=== PATIENT | female | born 1955 | race Caucasian/White ===

== ENCOUNTER 2016-08-02 08:39 | Inpatient (IN) | payer MEDICAID, MEDICARE ==
[2016-08-02] VITALS (9 sets, daily range): BP systolic 110–132; BP diastolic 48–77; PULSE 78–99; RESP 16–30; O2SAT 92–96
[~2016-08-02] VITALS: Ht 160 cm; Wt 110.7 kg
[2016-08-02] MEDS ORDERED: 0.9% Sodium Chloride 1,000 ML IV ONE (09:16)
[2016-08-02] MEDS ORDERED: Albuterol-Ipratropium 3 mL Inhalation Solution NEB ONE (09:20)
[2016-08-02] MEDS ORDERED: Magnesium Sulf 2 Gm/50mL Water 2 GM in IV Premix 1 EACH IV ONE (09:20)
[2016-08-02] MEDS ORDERED: cefTRIAXone Inj 2,000 MG in Dextrose 5% Minibag Plus 50 ML IV ONE (09:20)
[2016-08-02] MEDS ORDERED: MethylprednisoLONE Sodium Succinate 62.5 mg/mL 2 mL Inj IVPUSH ONE (09:20)
--- NOTE | 2016-08-02 09:35 | DRSVH ---
PROCEDURE: X-RAY CHEST ONE VIEW, PORTABLE ([id number]) INDICATIONS: cough TECHNIQUE: One view of the chest was acquired. COMPARISON: None. FINDINGS: Surgical changes and devices: None. Lungs and pleura: No pleural effusions or pneumothorax. Lungs are clear. Mediastinum: Mediastinal contours appear normal. Heart size is normal. Bones and chest wall: No suspicious bony lesions. Overlying soft tissues appear unremarkable. IMPRESSION: Negative chest. No acute cardiopulmonary process is evident. Dictated by: Juan Santana M.D. on 08/02/2016 at 8:31 Approved by: Juan Santana M.D. on 08/02/2016 at 8:33
--- NOTE | 2016-08-02 09:48 | ED.REPORT ---
HPI-Dyspnea / Wheezing Date of Service August 02, 2016 ED Provider: Moriah Dorado MD Benita Do is an 61-year-old female with history of chronic bronchitis, on ProAir as needed, bipolar disorder, on Lamictal, anxiety, on Clonazepam, and insonia, on Trazodone, who comes in to [facility] complaining of worsening cough and dyspnea on the last 3 weeks. She was seen at the urgent care about 3 weeks ago with upper respiratory symptoms and was given azithromycin to take. Saturday, 4 days ago, her shortness of breath and cough became worse and she returned to urgent care where she was given additional course of an antibiotic, steroids and ProAir HFA. Today patient reports she is not getting better. She continues to be tachypneic. She has productive cough with thick green mucus. She has decreased appetite for solid foods but she is able to take in liquids. She denies fever or chills. She denies chest pain pain, nausea, vomiting, diarrhea. Patient reports thoracic back pain when coughing. She states she has to use her inhaler more often on a daily basis. Nursing Notes Stated Complaint: SHORTNESS OF BREATH Chief Complaint: Respiratory Complaints Allergies: Coded Allergies: codeine (Verified Allergy, Intermediate, stomach pain, 08/02/16) lisinopril (Verified Allergy, Intermediate, rash, 08/02/16) Penicillins (Verified Adverse Reaction, Mild, nausea, hives, 08/02/16) Scheduled Azithromycin (Zithromax (Z-Luis Alberto)) 250 Mg Tablet 250 MG PO DAILY Lamotrigine (Lamotrigine) 200 Mg Tablet 200 MG PO HS Multivitamin (Once Daily) 1 Each Tablet 1 EACH PO DAILY Prednisone (PredniSONE) 50 Mg Tablet 50 MG PO DAILY Trazodone (Trazodone) 50 Mg Tablet 100 MG PO HS Scheduled PRN Albuterol HFA (Proair HFA) 8.5 Gm Hfa.aer.ad 1-2 PUFFS INH Q4H PRN PRN For Shortness of Breath Clonazepam (Clonazepam) 1 Mg Tablet 1 MG PO TID PRN PRN For Anxiety General Time Seen by MD: 09:07 Chief Complaint Cough, Shortness of breath, Wheezing Hx Obtained From: Patient Arrived By: Walk-in Onset Occurred: More than a week ago... (3 weeks) Severity: Current: No pain currently Risk Factors PERC Rule Age 50 or over Past Medical History Patient History: Stroke Chronic bronchitis Bipolar disorder Anxiety Insomnia Past Surgical History Thyroidectomy Reports: Hysterectomy Reports: Tubal ligation Smoking History Former Smoker (40 pack-year history) Social History Alcohol Use: Denies alcohol use Drug Use: Denies drug use Other Social History: Lives alone Ambulatory Status Independent Review of Systems A comprehensive review of systems has been conducted with the patient and was found to be negative except what is mentioned in the history of present illness. Physical Exam Initial Vital Signs Vital Signs (First) Date Time Temp Pulse Resp B/P Pulse Ox O2 Delivery O2 Flow Rate FiO2 08/02/16 08:45 36.3 86 30 110/63 96 Room Air Initial VS: Reviewed Head / Eyes: Atraumatic, Normocephalic, PERRL ENT: Mucous membranes moist, Conjunctiva normal, No scleral icterus Abdomen / GI: Soft, Non-tender, No distention Back: No CVA tenderness Lymphatic: No lymphadenopathy Extremities: Vascular intact, Neuro intact, No swelling, No tenderness Skin: Warm, Dry, No cyanosis (well-perfused) Neurologic: Alert, Oriented, Nonfocal Psychiatric: Mood/affect normal, Behavior normal General/Constitutional: Awake, Alert, Well nourished Distress / Hydration: Positive: Distress mild Resp Distress / Stridor: Positive: Resp distress mild, Speaks words only Wheezing / Retractions: Positive: Wheeze insp/exp diffuse (bilaterally throughout anterior and posterior lung hutchinson) Cardiovascular: Regular rhythm, No murmurs Periph CV / BP Differential: Positive: Peripheral pulses 2+ Lower Extremity / Pelvis / MS: No swelling Interpretation & Diagnostics Interpretation & Diagnostics: + mycoplasma Lab Results Interpretation Result Diagram: 08/02/16 0930 08/02/16 0930 Test 08/02/16 09:30 White Blood Count 11.2th/mm3 (3.8-10.1) Red Blood Count 4.35mil/mm3 (3.90-5.20) Hemoglobin 12.6g/dL (12.0-15.6) Hematocrit 40.0% (35.0-46.0) Mean Corpuscular Volume 92.0fL (81-100) Mean Corpuscular Hemoglobin 29.0pg (27.0-35.0) Mean Corpuscular Hemoglobin Concent 31.5% (32.0-37.0) Red Cell Distribution Width 14.3% (12.3-15.4) Platelet Count 270bil/L (150-400) Neutrophils (%) (Auto) 69.1% (40-74) Lymphocytes (%) (Auto) 20.9% (14-46) Monocytes (%) (Auto) 8.1% (4-12) Eosinophils (%) (Auto) 1.3% (0-5) Basophils (%) (Auto) 0.4% (0-3) D-Dimer 0.56mg/L FEU (<0.50) Sodium Level 142mEq/L (134-144) Potassium Level 4.2mEq/L (3.5-5.2) Chloride Level 102mEq/L (97-108) Carbon Dioxide Level 26mmol/L (18-29) Blood Urea Nitrogen 19mg/dL (8-27) Creatinine 0.80mg/dL (0.57-1.00) Estimat Glomerular Filtration Rate 104mL/min (>59) Glucose Level 100mg/dL (60-99) Lactic Acid Level 1.9mmol/L (0.4-2.0) Calcium Level 8.8mg/dL (8.5-10.1) Magnesium Level 1.8mg/dL (1.6-2.6) Total Bilirubin 0.2mg/dL (0.0-1.2) Aspartate Amino Transf (AST/SGOT) 29U/L (0-50) Alanine Aminotransferase (ALT/SGPT) 17U/L (0-32) Alkaline Phosphatase 77U/L (25-165) Troponin T 0.010ug/L (0.0-0.011) Pro-B-Type Natriuretic Peptide 283.5pg/mL (0-287) Total Protein 6.9g/dL (6.4-8.4) Albumin 3.7g/dL (3.4-5.0) Procalcitonin 0.05ng/mL (0.00-0.08) ECG Interpretation ECG Interpretation: Sinuses and, heart rate 87 X-Ray Chest Interpretation Chest Xray Interpretation: No acute cardiopulmonary process is evident. Interpretation / Wet Read by: Interpret - Radiologist ( Juan Santana M.D. on 08/02/2016 at 8:31) CT Chest Interpretation IMPRESSION: 1. No evidence of pulmonary emboli. 2. Bibasilar pneumonia with associated bronchitis. 3. Small hiatal hernia. Paraesophageal varices versus small lymph nodes. Dictated by: Juan Santana M.D. on 08/02/2016 at 11:11 Re-Eval/Medical Decision Med Decision/Clinical Course Patient is a 61-year-old female with history of chronic bronchitis on ProAir as needed and COPD, not on home oxygen, who comes in after failed antibiotic therapy for respiratory infection. Patient presents with worsening dyspnea, respiration rate of 30 and cough with thick green mucus. She is afebrile. Concern is for pulmonary emboli due to increase in d-dimer; CT angiogram is pending. COPD exacerbation can not be excluded. Community acquired pneumonia ( no acute cardiopulmonary process on chest x-ray, however), bronchitis,viral respiratory infection are also on hour differential list. We will start patient on Ceftriaxone, 2gm IV and normal saline IV fluids. Will treat patient with Solu-Medrol, 125mg IV once, Magnesium Sulfate, 2gm IV once and DuoNeb treatment. We will check viral respiratory PCR, get blood cultures, check procalcitonin, lactic acid and D-dimer. Re-Evaluation/Progress : Time of Eval: 10:46 Re-Evaluation/Progress Note: Dr Dorado: concern on tele for runs of V Tach. Had pt cough and strip reproduced - artifact. Still quite tachypnic after nebs, fluids, steorid and mag with RR 25-35 and accessory muscles for breathing. Wheeze has improved. sats remain in upper 90's on RA with subjective dyspnea. Distant x-rays with scattered interstitial bilateral findings suggestive of an atypical pneumonia. White count is slightly elevated however pro calcitonin is entirely normal. D-dimer is borderline elevated. Clinical picture is not looking like an obvious external pneumonia. With severe tachypnea still, we will order a CT angios make sure there is no pulmonary embolism. At this point admission is expected. Differential Diagnosis: Positive: Bronchitis, COPD exacerbation, Pneumonia, Pulmonary embolism Comorbidities: Bronchitis, COPD, Disability, Psychiatric history Discharge & Departure Impression: Primary Impression: Mycoplasmal pneumonia Additional Impressions: Tachypnea Respiratory distress Acute exacerbation of chronic obstructive pulmonary disease (COPD) Disposition: ADMITTED TO HOSPITAL Referrals: Yocasta Reyes MD (PCP) Attending Statement Patient seen and examined with Dr. Peña. Significant tachypnea increased work of breathing mild tachycardia normal oxygenation on room air. Low pro- calcitonin minimally elevated white blood cell count no evidence of congestive heart failure. CT scan shows no evidence of pulmonary embolism however she does have a bibasilar pneumonia agreed with plans for admission Jo Peña DO August 02, 2016 09:48 Moriah Dorado MD August 02, 2016 10:49
[2016-08-02 09:49] LABS: BASOPHILS % (AUTO) 0.4 % (0-3); EOSINOPHILS % (AUTO) 1.3 % (0-5); MONOCYTES % (AUTO) 8.1 % (4-12); NEUTROPHILS % (AUTO) 69.1 % (40-74); Platelet Count 270 bil/L (150-400)
[2016-08-02 10:14] LABS: TROPONIN T 0.01 ug/L (0.0-0.011)
--- NOTE | 2016-08-02 12:19 | DRSVH ---
PROCEDURE: CT ANGIO CHEST PULMONARY EMBOLISM ([id number]) INDICATIONS: tachypnea TECHNIQUE: After the administration of intravenous contrast, 2 mm thick sections acquired from the pulmonary api missy to the posterior costophrenic angles. 3-dimensional maximum intensity projection (MIP) coronal a nd sagittal reformats were then acquired through the thorax. For radiation dose reduction, the follo wing was used: automated exposure control, adjustment of mA and/or kV according to patient size. COMPARISON: None. FINDINGS: Image quality: A large portion of the lung bases was not included on the initial pulmonary arterial p hased images which does limit evaluation for very subtle pulmonary emboli in the lung bases. Pulmonary arteries: Pulmonary arteries are normal in size, and demonstrate no intraluminal filling d efects to suggest central pulmonary embolism. Lungs and pleura: No pleural effusion, pneumothorax, or overt heart failure is identified. There are areas of moderate bronchial wall thickening identified, predominantly seen within the bilateral lowe r lobes and perihilar regions (right greater than left). Corresponding airspace disease with tree an d bud nodularity is appreciated within the right lower lobe. Additional more subtle areas of tree in bud nodularity are seen within the right upper lobe and possibly within the left lower lobe. No bolivar g masses evident. Evaluation for pulmonary nodules is difficult on this exam. No definite pulmonary nodule is appreciated. Mediastinum: Heart size is normal, without pericardial effusion. No mediastinal or hilar adenopathy . Thoracic aorta is normal in caliber and enhancement. There is aortic atherosclerosis. Coronary a rtery atherosclerosis also is present. There is a small hiatal hernia. Multiple collateral vessels are seen adjacent to the distal esophagus. Bones and chest wall: No suspicious bony lesions. Ribs and thoracic spine appear intact throughout. Age-appropriate degenerative changes of the spine are present. No acute compression fractures are evident. Thyroid gland is not enlarged. No axillary or supraclavicular adenopathy. Abdomen: The imaged upper abdominal solid organs appear normal in the early arterial phase of enhance ment. IMPRESSION: 1. No evidence of pulmonary emboli. 2. Bibasilar pneumonia with associated bronchitis. 3. Small hiatal hernia. Paraesophageal varices versus small lymph nodes. Dictated by: Juan Santana M.D. on 08/02/2016 at 11:11 Approved by: Juan Santana M.D. on 08/02/2016 at 11:17
[2016-08-02] MEDS ORDERED: Alum-Mag Hydrox-Simeth 30 mL Suspension PO PRN (13:30)
[2016-08-02] MEDS ORDERED: Polyethylene Glycol (PEG) 17 Gm Powder PO PRN (13:30)
[2016-08-02] MEDS ORDERED: Albuterol-Ipratropium 3 mL Inhalation Solution NEB PRN (13:30)
--- NOTE | 2016-08-02 13:40 | PCM.HPMED ---
Subjective Date of Service August 02, 2016 Primary Provider: Admitting Physician: Primary Care Physician: Yocasta Reyes MD Attending Physician: Admit Status: From the Emergency Department Chief Complaint: Persistent shortness of breath History of Present Illness: Patient is a 61-year-old female past medical history significant for COPD/ chronic bronchitis in addition to bipolar disorder presented to [facility] emergency department complaining of worsening cough and shortness of breath which is persistent for the last 3 weeks. Patient noted a more acute worsening over the weekend and on Saturday presented to urgent care at which time she was prescribed course of steroids, when necessary nebulizer pro-air, additional course of antibiotics (Z-Luis Alberto) and discharged home. She had been following therapy as prescribed however note shortness of breath did not improve, perhaps worsened. Additionally noted decreased appetite lower energy level and a cough which is productive of thick green mucus. She does however deny any fever chills or sweats either during our examination are previously. Cough appears very severe and now produces back pain at times. Denies any chest pains or palpitations. She does receive a small amount released from inhaler therapy but this is only transient. Thalami evaluation patient is lying in hospital bed and transported from ER, notes significant improvement for medications provided in the emergency department including magnesium sulfate and Solu- Medrol in conjunction with DuoNeb therapy. Nonetheless she is still complaining of persistent shortness of breath, thankful to be in the care of the hospitalist service. Review of Systems: 10 point review of systems was conducted and entirely negative excepting pertinent positives and negatives included in above history of present illness Allergies Coded Allergies: codeine (Verified Allergy, Intermediate, stomach pain, 08/02/16) lisinopril (Verified Allergy, Intermediate, rash, 08/02/16) Penicillins (Verified Adverse Reaction, Mild, nausea, hives, 08/02/16) Home Medications Lamictal Klonopin Trazodone as needed for sleep Pro-air when necessary Azithromycin, day 3 of 5 Prednisone 50 mg daily. PMH Stroke Chronic bronchitis Bipolar disorder Anxiety Insomnia Surgical History Thyroidectomy Hysterectomy Tubal ligation Family History Patient notes her father suffered from heart disease, and aware of any diseases on her mother's side Social History Hx Alcohol Use: No Hx Substance Use: No Smoking Status: Former Smoker (40 pack-year history/ quit 1 week prior) Exam Vital Signs Vital Sign - Last Date Time Temp Pulse Resp B/P Pulse Ox O2 Delivery O2 Flow Rate FiO2 08/02/16 13:12 36.8 78 18 131/68 95 Room Air General: Alert, Oriented X3, Cooperative, Mild Distress Eyes: PERRLA, EOMI Mouth: Mucous Membr Moist/[place] Neck: Supple Chest & Lungs: Other (coarse breath sounds with diffuse expiratory wheezes noted and normal lung hutchinson. No expiratory wheezes noted. No consolidation or dullness to percussion. ) Cardiovascular: Regular Rate/Rhythm Abdomen: Non-tender, Non-distended, Other (obese) Extremities: No cyanosis/clubbing/edma bilat Neurological: Grossly Neurologically Intact Lab and Diagnostics Result Diagram: 08/02/1692908/02/16929 Assessment & Plan 61-year-old female past medical history of chronic bronchitis presented to emergency department for refractory shortness of breath with respiratory distress following failed outpatient therapy prescribed by urgent care facility approximately 5 days prior. ER evaluation identified mycoplasma pneumonia in addition to clinical findings supportive of COPD and acute exacerbation. Patient readmitted to the hospital for further evaluation and care 1. Acute respiratory failure, hypercapnic - It is likely patient's acute infection in conjunction with underlying lung disease has combined to create her current respiratory compromise - Continue to provide supplemental oxygen as needed - Standing due to nebs every 6 hours In addition to when necessary nebulizer therapies as needed for persistent shortness of breath - See problems below for specific treatments for individual conditions. 2. COPD/bronchitis - Due to nebs to be provided every 2 hours as needed for shortness of breath wheezing - Following Solu-Medrol and accident ER we will increase prednisone to 60 mg by mouth daily - Supplemental oxygen to the provided as needed, for goal of between 88 and 92% saturation 3. Mycoplasma pneumonia - Continue ceftriaxone as prescribed in emergency department in addition to azithromycin - Continue intravenous fluids at 100 mL per hour overnight - Respiratory support as detailed above. 4. Mood disorder - We will continue patient's home medications for anxiety and insomnia. Patient's respiratory function is decompensated to the point where she will likely need greater than 2 midnights for adequate recovery to allow for home discharge. Anticipate patient to be discharged home with regular respiratory rate found in for supplemental oxygen when medically stable. Pain Evaluation: Adequate Pain Control GI Prophylaxis: Not indicated VTE Mechanical Devices: Intermittant Pneumatic CD Resuscitation Status: CPR: Attempt Resuscitation Time spent 55 minutes Imtiaz Spence DO August 02, 2016 13:40
[2016-08-02] MEDS ORDERED: PRED50TA PO (13:55)
[2016-08-02] MEDS ORDERED: KLO1T PO (13:55)
[2016-08-02] MEDS ORDERED: TRAZ-115 PO (13:55)
[2016-08-02] MEDS ORDERED: AZIT250T4 PO (13:55)
[2016-08-02] MEDS ORDERED: LAMO200T2 PO (13:55)
[2016-08-02] MEDS ORDERED: MULT-666 PO (13:55)
[2016-08-02] MEDS ORDERED: ALBU8.5H2 INH (13:55)
--- NOTE | 2016-08-02 14:42 | NUR ---
Admit nurse note Admission assessment completed in the ER. Pt. c/o mild chest aching "from coughing so much". Sisters are at the bedside. Pt. verifies medication list and states she started prednisone and z-pack on Saturday but missed her doses for today. Pt. states she came for sob after not improving after doctor's appointment. She gives history of complete thyroidectomy, but is not on any thyroid replacement. PT. instructed to follow up with PCP. Pt. given information on advance directives per request. Sleep apnea protocol to be initiated upon arrival to unit. Quit kit given per request as pt. states she quit smoking on Saturday. PT. reports last using Meth in March with intent never to use it again. She also gives a history of frequent falls related to "tripping on things." fall signs up and pt oriented to room, call mayes and fall precautions. Pt. assisted to br and nonslip socks provided. She is steady on her feet during assessment. Report given to Melissa Day.
[2016-08-02] MEDS: 0.9% Sodium Chloride 1,000 ML IV SCH (16:27)
[2016-08-02] MEDS: Albuterol-Ipratropium 3 mL Inhalation Solution NEB SCH (18:17)
--- NOTE | 2016-08-02 19:06 | NUR ---
Admission Admit to room 3003 from ER with admission RN and visitors at bedside. IVF started. SKOOG MACHINE OPERATOR placed. Making needs known using call light.
[2016-08-02] MEDS: lamoTRIgine 100 mg Tablet PO SCH (20:08)
[2016-08-03] VITALS (8 sets, daily range): BP systolic 128–168; BP diastolic 70–78; PULSE 83–102; RESP 16–26; O2SAT 90–95
[2016-08-03] MEDS: 0.9% Sodium Chloride 1,000 ML IV SCH ×3 (01:56→14:08)
[2016-08-03] MEDS: Albuterol-Ipratropium 3 mL Inhalation Solution NEB SCH ×4 (03:50→20:30)
[2016-08-03 06:24] LABS: BASOPHILS % (AUTO) 0.2 % (0-3); EOSINOPHILS % (AUTO) 0.1 % (0-5); MONOCYTES % (AUTO) 7.9 % (4-12); Mean Corpuscular Hemoglobin 29.2 pg (27.0-35.0); Mean Corpuscular Volume 89.7 fL (81-100); NEUTROPHILS % (AUTO) 71.4 % (40-74); Platelet Count 312 bil/L (150-400)
--- NOTE | 2016-08-03 07:15 | PCM.PNMED ---
Subjective Date of Service August 03, 2016 Subjective Patient reports improved respiratory function but she is still significantly short of breath than her baseline. Even mild activity while in bed makes her winded which is certainly not her usual. sHe also reported Coughing last night which is nonproductive The patient at least is good however, she was enjoying breakfast during our interview. Exam Vital Signs Vital Sign - Last Date Time Temp Pulse Resp B/P Pulse Ox O2 Delivery O2 Flow Rate FiO2 08/03/16 04:37 36.6 102 25 143/74 90 Nasal Cannula 1.00 Intake and Output 08/02/16 08/02/16 08/03/16 Cumulative From/Thru 15:00 23:00 07:00 08/02/16 08:45 - 08/03/16 06:39 Intake Total 1000 ml 275 ml 1684 ml 2959 ml Output Total 250 ml 800 ml 1050 ml Balance 1000 ml 25 ml 884 ml 1909 ml Intake Oral 275 ml 886 ml 1161 ml IV Total 1000 ml 798 ml 1798 ml Output Urine Total 250 ml 800 ml 1050 ml # Bowel Movements 0 1 1 Exam General: Alert, Oriented X3, Cooperative, Mild Distress Eyes: PERRLA, EOMI Mouth: Mucous Membrane Moist/[place] Neck: Supple Chest & Lungs: Coarse breath sounds with diffuse expiratory wheezes noted and normal lung hutchinson. No expiratory wheezes noted. No consolidation or dullness to percussion. ) Cardiovascular: Regular Rate/Rhythm Abdomen: Non-tender, Non-distended, Obese) Extremities: No cyanosis/clubbing/edema bilat Neurological: Grossly Neurologically Intact IVs and Medications Medications Reviewed: Medications were reviewed in detail Lab and Diagnostics Result Diagram: 08/03/16 0532 08/03/16 0532 Assessment & Plan 61-year-old female past medical history of chronic bronchitis presented to emergency department for refractory shortness of breath with respiratory distress following failed outpatient therapy prescribed by urgent care facility approximately 5 days prior. ER evaluation identified mycoplasma pneumonia in addition to clinical findings supportive of COPD and acute exacerbation. Patient readmitted to the hospital for further evaluation and care 1. Acute respiratory failure, hypercapnic - It is likely patient's acute infection in conjunction with underlying lung disease has combined to create her current respiratory compromise - Continue to provide supplemental oxygen as needed - Standing due to nebs every 6 hours In addition to when necessary nebulizer therapies as needed for persistent shortness of breath - Pt remain tachypnic with need for oxygen support - See problems below for specific treatments for individual conditions. 2. COPD/bronchitis - Duo nebs to be provided every 2 hours as needed for shortness of breath wheezing with standing orders Q6h - Following Solu-Medrol and accident ER we will increase prednisone to 60 mg by mouth daily from 50 out patient. - Supplemental oxygen to the provided as needed 3. Mycoplasma pneumonia - Continue ceftriaxone as prescribed in emergency department in addition to azithromycin - Continue intravenous fluids at 100 mL per hour - Respiratory support as detailed above. 4. Mood disorder - We will continue patient's home medications for anxiety and insomnia. Patient's respiratory function is decompensated to the point where she will likely need greater than 2 midnights for adequate recovery to allow for home discharge. Anticipate patient to be discharged home with regular respiratory rate found in for supplemental oxygen when medically stable. Pain Evaluation: Adequate Pain Control GI Prophylaxis: Not indicated VTE Mechanical Devices: Intermittant Pneumatic CD Resuscitation Status: CPR: Attempt Resuscitation Time spent 25 minutes Imtiaz Spence DO August 03, 2016 07:15
[2016-08-03] MEDS: Multivit-Miner-Folic Acid-Iron Tablet PO SCH (08:51)
[2016-08-03] MEDS: predniSONE 20 mg Tablet PO SCH (08:51)
[2016-08-03] MEDS: cefTRIAXone Inj 2,000 MG in Dextrose 5% Minibag Plus 50 ML IV SCH (08:52)
[2016-08-03] MEDS: Azithromycin Inj 500 MG in Dextrose 5% w/Vial Mate 250 ML IV SCH (08:52)
[2016-08-03] MEDS: [UNRECOGNIZED DRUG - OTHER] INHALATION PRN ×3 (11:19→21:25)
[2016-08-03] MEDS: guaiFENesin DM 200-20 mg/10 mL Syrup PO PRN ×2 (12:42→21:24)
--- NOTE | 2016-08-03 15:05 | NUR ---
Social Work: Initial Assessment Data: Pt is a 61 y/o female admitted for bibasilar mycoplasma, pneumonia, COPD exacerbation. Pt's PCP is Dr Reyes, pt's insurance is Medicare. EMR reviewed. Readmit score is 5, high. OYSTER CULTURIST met with pt at bedside, role explained. Pt states she lives alone in a single story home where she uses no DME. Pt states she drives, has no hx of HH or SNF, no LTC or VA benefits, and is not a caregiver. OYSTER CULTURIST explained HH, pt declining at this time, anticipates she will not need this at d/c. HH choice list given, pt states she has no preference if needed. OYSTER CULTURIST will continue to follow. Assessment: Pt who is independent at baseline. Plan: Pt will d/c home via POV when medically stable, pt declining HH at this time. OYSTER CULTURIST will continue to follow for possible home health need. OYSTER CULTURIST will continue to follow. VIR[place] Ritter Addendum: 08/03/16 at 1509 by MILAGRO VERMA Amended: Links added.
--- NOTE | 2016-08-03 15:43 | NUR ---
took over patient care [id number]
--- NOTE | 2016-08-03 19:34 | NUR ---
Respiratory Excessive coughing with neb txs. Provider okay to use personal inhaler and relabeled from pharmacy. Tolerating well.
[2016-08-03] MEDS: lamoTRIgine 100 mg Tablet PO SCH (21:24)
[2016-08-04] MEDS: Albuterol-Ipratropium 3 mL Inhalation Solution NEB SCH ×4 (02:30→20:17)
[2016-08-04] MEDS: 0.9% Sodium Chloride 1,000 ML IV SCH (05:26)
--- NOTE | 2016-08-04 05:37 | NUR ---
Respiratory/GI: pt on 1LO2 while asleep, CPOX in place, sats low 90's. pt states she is having frequent diarrhea, but has not yet this shift. Will continue to monitor.
[2016-08-04] MEDS: [UNRECOGNIZED DRUG - OTHER] INHALATION PRN ×3 (05:41→18:27)
[2016-08-04 06:18] VITALS: BP 131/76; PULSE 83; RESP 24; O2SAT 90
[2016-08-04] MEDS: Multivit-Miner-Folic Acid-Iron Tablet PO SCH (08:23)
[2016-08-04] MEDS: predniSONE 20 mg Tablet PO SCH (08:23)
[2016-08-04] MEDS: cefTRIAXone Inj 2,000 MG in Dextrose 5% Minibag Plus 50 ML IV SCH (08:23)
[2016-08-04] MEDS: guaiFENesin DM 200-20 mg/10 mL Syrup PO PRN (08:34)
[2016-08-04 08:38] VITALS: PULSE 84; RESP 16; O2SAT 94
[2016-08-04] MEDS: Azithromycin Inj 500 MG in Dextrose 5% w/Vial Mate 250 ML IV SCH (09:07)
--- NOTE | 2016-08-04 10:55 | PCM.PNMED ---
Subjective Date of Service August 04, 2016 Exam Vital Signs Vital Sign - Last Date Time Temp Pulse Resp B/P Pulse Ox O2 Delivery O2 Flow Rate FiO2 08/04/16 08:38 84 16 94 Nasal Cannula 1.00 08/04/16 06:18 37.0 131/76 Intake and Output 08/03/16 08/03/16 08/04/16 Cumulative From/Thru 15:00 23:00 07:00 08/02/16 08:45 - 08/04/16 06:18 Intake Total 480 ml 1912 ml 5351 ml Output Total 1700 ml 2750 ml Balance 480 ml 212 ml 2601 ml Intake Oral 550 ml 1711 ml IV Total 480 ml 1362 ml 3640 ml Output Urine Total 1700 ml 2750 ml # Bowel Movements 1 2 Exam General: Alert, Oriented X3, Cooperative, Mild Distress Eyes: PERRLA, EOMI Mouth: Mucous Membrane Moist/[place] Neck: Supple Chest & Lungs: Coarse breath sounds with diffuse expiratory wheezes noted and normal lung hutchinson. No expiratory wheezes noted. No consolidation or dullness to percussion. Cardiovascular: Regular Rate/Rhythm Abdomen: Non-tender, Non-distended, Obese Extremities: No cyanosis/clubbing/edema bilat Neurological: Grossly Neurologically Intact IVs and Medications Medications Reviewed: Medications were reviewed in detail Lab and Diagnostics Result Diagram: 08/03/16 0532 08/03/16 0532 Assessment & Plan 61-year-old female past medical history of chronic bronchitis presented to emergency department for refractory shortness of breath with respiratory distress following failed outpatient therapy prescribed by urgent care facility approximately 5 days prior. ER evaluation identified mycoplasma pneumonia in addition to clinical findings supportive of COPD and acute exacerbation. Patient readmitted to the hospital for further evaluation and care 1. Acute respiratory failure, hypercapnic - It is likely patient's acute infection in conjunction with underlying lung disease has combined to create her current respiratory compromise - Continue to provide supplemental oxygen as needed - Standing due to nebs every 6 hours In addition to when necessary nebulizer therapies as needed for persistent shortness of breath - Pt remain tachypnic with need for oxygen support, describing increased work of breathing - See problems below for specific treatments for individual conditions. - Patient is making slow but consistent progress, condition improving but not resolved. 2. COPD/bronchitis - Duo nebs to be provided every 2 hours as needed for shortness of breath wheezing with standing orders Q6h - Following Solu-Medrol and accident ER we will increase prednisone to 60 mg by mouth daily from 50 out patient. - Supplemental oxygen to the provided as needed, plan to wean as tolerated 3. Mycoplasma pneumonia - Continue ceftriaxone as prescribed in emergency department in addition to azithromycin - Continue intravenous fluids will be discontinued at this time given good by mouth intake. - Respiratory support as detailed above. 4. Mood disorder - We will continue patient's home medications for anxiety and insomnia. Patient's respiratory function is decompensated to the point where she will likely need greater than 2 midnights for adequate recovery to allow for home discharge. Anticipate patient to be discharged home with regular respiratory rate found in for supplemental oxygen when medically stable. Pain Evaluation: Adequate Pain Control GI Prophylaxis: Not indicated VTE Mechanical Devices: Intermittant Pneumatic CD Resuscitation Status: CPR: Attempt Resuscitation Time spent 25 minutes Imtiaz Spence DO August 04, 2016 10:55
--- NOTE | 2016-08-04 11:11 | NUR ---
[facility] signed
[2016-08-04 13:13] VITALS: BP 155/74; PULSE 94; RESP 20; O2SAT 93
--- NOTE | 2016-08-04 13:14 | NUR ---
loose stools pt reports that she has had loose stools for the last few days. She would like some kind of medication for this. paged, waiting on response.
[2016-08-04 20:17] VITALS: PULSE 88; RESP 16; O2SAT 93
[2016-08-04] MEDS: Lactobacillus Rhamnosus 10 Bil Unit Capsule PO SCH (20:20)
[2016-08-04 21:05] VITALS: BP 136/77; PULSE 81; RESP 20; O2SAT 96
[2016-08-04] MEDS: lamoTRIgine 100 mg Tablet PO SCH (22:19)
[2016-08-05] MEDS: [UNRECOGNIZED DRUG - OTHER] INHALATION PRN (02:01)
[2016-08-05] MEDS: Albuterol-Ipratropium 3 mL Inhalation Solution NEB SCH ×2 (02:30→08:29)
[2016-08-05 05:00] VITALS: BP 155/76; PULSE 81; RESP 18; O2SAT 96
--- NOTE | 2016-08-05 06:15 | NUR ---
Noc activity Pt denies chest pain. Reports mild sob. Inhaler administered PRN. Refused to have breathing tx by RT as it exacerbates her cough. Has been on 2LPM NC and trying to wean to RA. Pt reports of having a CPAP at home states that she didn't bring it with her. Pt reports of having a large loose bowel movement and request to have some anti motility agents. Administered Imodium PRN. No further complaints. Intentional hourly rounding was done.
[2016-08-05] MEDS: predniSONE 20 mg Tablet PO SCH (08:09)
[2016-08-05] MEDS: cefTRIAXone Inj 2,000 MG in Dextrose 5% Minibag Plus 50 ML IV SCH (08:09)
[2016-08-05] MEDS: Lactobacillus Rhamnosus 10 Bil Unit Capsule PO SCH (08:09)
[2016-08-05] MEDS: Multivit-Miner-Folic Acid-Iron Tablet PO SCH (08:09)
[2016-08-05 08:35] VITALS: PULSE 87; RESP 16; O2SAT 93
[2016-08-05] MEDS: Azithromycin Inj 500 MG in Dextrose 5% w/Vial Mate 250 ML IV SCH (08:56)
--- NOTE | 2016-08-05 09:16 | NUR ---
nicotine patch pt states that she has been thinking/dreaming about smoking. She would like to have her patch just before being discharged.
--- NOTE | 2016-08-05 10:50 | PCM.DC.MED ---
Discharge Summary Date of Service August 05, 2016 Dates of Hospitalization Date of Hospital Admission August 02, 2016 at 13:35 Date of Discharge: August 05, 2016 Providers: Admitting Physician: Imtiaz Spence DO Primary Care Physician: Federica Gale Attending Physician: Imtiaz Spence DO Brief History Patient is a 61-year-old female past medical history significant for COPD/ chronic bronchitis in addition to bipolar disorder presented to [facility] emergency department complaining of worsening cough and shortness of breath which is persistent for the last 3 weeks. Patient noted a more acute worsening over the weekend and on Saturday presented to urgent care at which time she was prescribed course of steroids, when necessary nebulizer pro-air, additional course of antibiotics (Z-Luis Alberto) and discharged home. She had been following therapy as prescribed however note shortness of breath did not improve, perhaps worsened. Additionally noted decreased appetite lower energy level and a cough which is productive of thick green mucus. She does however deny any fever chills or sweats either during our examination are previously. Cough appears very severe and now produces back pain at times. Denies any chest pains or palpitations. She does receive a small amount released from inhaler therapy but this is only transient. [place]al[place] evaluation patient is lying in hospital bed and transported from ER, notes significant improvement for medications provided in the emergency department including magnesium sulfate and Solu- Medrol in conjunction with DuoNeb therapy. Nonetheless she is still complaining of persistent shortness of breath, thankful to be in the care of the hospitalist service. Hospital Course 1. Acute respiratory failure, hypercapnic - It is likely patient's acute infection in conjunction with underlying lung disease has combined to create her current respiratory compromise - Continue to provide supplemental oxygen as needed - Standing due to nebs every 6 hours In addition to when necessary nebulizer therapies as needed for persistent shortness of breath - Pt remained tachypnic with need for oxygen support, describing increased work of breathing through first 2 days of hospitalization, but this did start to improve by day of discharge. - See problems below for specific treatments for individual conditions. - Pt improved to being stable on room air, imrpomved work of breathing, discharged in stable and improving condition , though not yet resolved. 2. COPD/bronchitis - Duo nebs were provided every 2 hours as needed for shortness of breath wheezing with standing orders Q6h - Following Solu-Medrol and accident ER we will increase prednisone to 60 mg by mouth daily from 50 out patient. - Supplemental oxygen to the provided as needed,weaned and dc'd prior to discharge - Plan to continue Steroid taper for 10 more days following discharge as follows (Prednisone 60mg PO daily for 2 days, then 40mg PO daily X4 days, then 20mg PO daily X4 days, then discontinue). 3. Mycoplasma pneumonia - Continue ceftriaxone as prescribed in emergency department in addition to azithromycin - Continue intravenous fluids will be discontinued at this time given good by mouth intake. - Respiratory support as detailed above. - Pt transitioned to Augmentin for 7 addition days on discharge, given previous treatment failure of Z-luis alberto prior to admission 4. Mood disorder - We will continue patient's home medications for anxiety and insomnia. 5. Tobacco dependence: - Cessation likely benefitted pt's improvement. - Encourage continued cessation and follow up to establish care with PCP for further support. Exam Vital Signs (Last) Date Time Temp Pulse Resp B/P Pulse Ox O2 Delivery O2 Flow Rate FiO2 08/05/16 09:08 Supplement Oxygen 08/05/16 08:35 87 16 93 08/05/16 05:00 36.9 155/76 1.00 Exam General: Alert, Oriented X3, Cooperative, No acute distress. Eyes: PERRLA, EOMI Mouth: Mucous Membrane Moist/[place] Neck: Supple Chest & Lungs: Coarse breath sounds with diffuse expiratory wheezes noted and normal lung hutchinson improved from day prior. No inspiratory wheezes noted. No consolidation or dullness to percussion. Cardiovascular: Regular Rate/Rhythm Abdomen: Non-tender, Non-distended, Obese Extremities: No cyanosis/clubbing/edema bilat Neurological: Grossly Neurologically Intact Test 08/02/16 09:30 08/03/16 05:32 08/04/16 23:59 D-Dimer 0.56mg/L FEU (<0.50) Hemoglobin A1c 6.0% (4.8-5.6) Lactic Acid Level 1.9mmol/L (0.4-2.0) Magnesium Level 1.8mg/dL (1.6-2.6) Total Bilirubin 0.2mg/dL (0.0-1.2) Aspartate Amino Transf (AST/SGOT) 29U/L (0-50) Alanine Aminotransferase (ALT/SGPT) 17U/L (0-32) Alkaline Phosphatase 77U/L (25-165) Troponin T 0.010ug/L (0.0-0.011) Pro-B-Type Natriuretic Peptide 283.5pg/mL (0-287) Total Protein 6.9g/dL (6.4-8.4) Albumin 3.7g/dL (3.4-5.0) White Blood Count 10.7th/mm3 (3.8-10.1) Red Blood Count 4.39mil/mm3 (3.90-5.20) Hemoglobin 12.8g/dL (12.0-15.6) Hematocrit 39.4% (35.0-46.0) Mean Corpuscular Volume 89.7fL (81-100) Mean Corpuscular Hemoglobin 29.2pg (27.0-35.0) Mean Corpuscular Hemoglobin Concent 32.5% (32.0-37.0) Red Cell Distribution Width 14.0% (12.3-15.4) Platelet Count 312bil/L (150-400) Neutrophils (%) (Auto) 71.4% (40-74) Lymphocytes (%) (Auto) 20.0% (14-46) Monocytes (%) (Auto) 7.9% (4-12) Eosinophils (%) (Auto) 0.1% (0-5) Basophils (%) (Auto) 0.2% (0-3) Sodium Level 141mEq/L (134-144) Potassium Level 4.6mEq/L (3.5-5.2) Chloride Level 102mEq/L (97-108) Carbon Dioxide Level 25mmol/L (18-29) Blood Urea Nitrogen 16mg/dL (8-27) Creatinine 0.65mg/dL (0.57-1.00) Estimat Glomerular Filtration Rate 133mL/min (>59) Glucose Level 111mg/dL (60-99) Calcium Level 8.7mg/dL (8.5-10.1) Procalcitonin 0.05ng/mL (0.00-0.08) Thyroid Stimulating Hormone (TSH) 2.540uIU/mL (0.450-4.500) Discharge Medications Discharge Medications Azithromycin (Zithromax (Z-Luis Alberto)) 250 Mg Tablet 250 MG PO DAILY (Reported) Lamotrigine (Lamotrigine) 200 Mg Tablet 200 MG PO HS (Reported) Multivitamin (Once Daily) 1 Each Tablet 1 EACH PO DAILY (Reported) Prednisone (PredniSONE) 50 Mg Tablet 50 MG PO DAILY (Reported) Trazodone (Trazodone) 50 Mg Tablet 100 MG PO HS (Reported) As needed Albuterol HFA (Proair HFA) 8.5 Gm Hfa.aer.ad 1-2 PUFFS INH Q4H PRN PRN For Shortness of Breath (Reported) Clonazepam (Clonazepam) 1 Mg Tablet 1 MG PO TID PRN PRN For Anxiety (Reported) Followup Plan Disposition: Follow up to establish care with [facility] within 1 week of discharge for further evaluation. Discharge Diet: Heart Healthy Discharge Activity: Limited until seen by PCP Follow-up Provider: [facility] Follow-up with PCP in: 1 week Time spent 50 minutes copies to: [facility] Imtiaz Spence DO August 05, 2016 10:50
[2016-08-05] MEDS ORDERED: PRED50TA PO (10:57)
[2016-08-05] MEDS ORDERED: CEFU500T61 PO (10:57)
--- NOTE | 2016-08-05 10:58 | PCM.DIMED ---
Discharge Instructions Date of Service August 05, 2016 Dates of Hospitalization August 02, 2016 at 13:35 Discharge Diagnosis Discharge Diagnosis 1. Mycoplasma pneumonia infection - improved, Complete additional 7 days of antibiotic 2. COPD exacerbation - Complete steroid taper in addition to home medications. Diet Heart Healthy Activity Limited until seen by PCP Patient Instructions Follow-up Provider: [facility] Follow-up with PCP in: 1 week Imtiaz Spence DO August 05, 2016 10:58
--- NOTE | 2016-08-05 12:08 | NUR ---
discharge paperwork reviewed, no questions at this time. pt denies pain/distress. belongings bagged and given to patient, personal inhaler returned with aero-chamber. pt given a ride in hospital W/C by [facility] to private car to return to private residence.
--- NOTE | 2016-08-05 12:20 | NUR ---
SW - Discharge Data: Pt is on day 3 of hospitalization for bibasilar mycoplasma, pneumonia, COPD exacerbation. EMR reviewed. Pt is medically cleared for discharge, is up and independent in room. Pt declines HH. Pt to discharge home via POV. No needs assessed. Assessment: Pt who is independent at baseline Plan: Pt to discharge home via POV. No needs assessed. [place]
== END 2016-08-05 12:00 | disposition home or self-care (01) | DRG 190 ==
LOC: SED 08:39 → MPC 13:35
PROVIDERS: ADMIT Family Medicine; ATTEND Family Medicine
DX: J44.0 Chronic obstructive pulmonary disease with (acute) lower respiratory infection (principal); J15.7 Pneumonia due to Mycoplasma pneumoniae; F31.9 Bipolar disorder, unspecified; F39 Unspecified mood [affective] disorder; J44.1 Chronic obstructive pulmonary disease with (acute) exacerbation; Z88.0 Allergy status to penicillin; Z79.51 Long term (current) use of inhaled steroids

== ENCOUNTER 2016-08-20 18:30 | Inpatient (IN) | payer MEDICARE ==
[~2016-08-20] VITALS: Ht 160 cm; Wt 111.4 kg
[~2016-08-20 18:30] MED LIST: ALBU8.5H2 INH; CEFU500T61 PO; KLO1T PO; LAMO200T2 PO; MULT-666 PO; PRED50TA PO; TRAZ-115 PO
[2016-08-20 18:39] VITALS: BP 149/79; PULSE 103; RESP 20; O2SAT 92
--- NOTE | 2016-08-20 18:56 | ED.REPORT ---
HPI-Dyspnea / Wheezing Date of Service August 20, 2016 ED Provider: Juan Miguel HigginsO. A 61 year old female with a medical history including COPD, chronic bronchitis, anxiety, and bipolar disorder presents to the ED with increasing shortness of breath over the past week, worsening significantly last night. The patient also reports cough. She denies fever or other symptoms. Two weeks ago the patient was discharged from the hospital after a three night stay with mycoplasma pneumonia and COPD exacerbation. She is currently being tested for a C.Diff infection due to experiencing diarrhea "for some time." Nursing Notes Stated Complaint: SOB Chief Complaint: Respiratory Distress Nursing Notes Reviewed: Yes Allergies: Coded Allergies: codeine (Verified Allergy, Intermediate, stomach pain, 08/02/16) lisinopril (Verified Allergy, Intermediate, rash, 08/02/16) Penicillins (Verified Adverse Reaction, Mild, nausea, hives, 08/02/16) Scheduled Lamotrigine (Lamotrigine) 200 Mg Tablet 200 MG PO HS Multivitamin (Once Daily) 1 Each Tablet 1 EACH PO DAILY Prednisone (PredniSONE) 50 Mg Tablet 20 MG PO DAILY Take 3 tabs (60mg) daily X2 days,then take 2 tabs (40mg) daily X4 days, then 1 tab (20mg) daily X4 days,then discontinue Trazodone (Trazodone) 50 Mg Tablet 100 MG PO HS Scheduled PRN Albuterol HFA (Proair HFA) 8.5 Gm Hfa.aer.ad 1-2 PUFFS INH Q4H PRN PRN For Shortness of Breath Clonazepam (Clonazepam) 1 Mg Tablet 1 MG PO TID PRN PRN For Anxiety General Time Seen by MD: 18:56 Chief Complaint Shortness of breath Hx Obtained From: Patient Arrived By: Walk-in Sudden in Onset?: No Onset Occurred: 1 week ago (Worsening last night) Symptom Duration: Since onset Severity: Current: No pain currently Severity: Maximum: No pain Pertinent Negative: Relieved by nothing Context Related History: Reports: Anxiety, COPD, Pneumonia Recent Healthcare: Recent doctor visit, Recent hospitalization Similar Sx Previous: Yes Past Medical History Patient History: Stroke Past Medical History Stroke Chronic bronchitis Bipolar disorder Anxiety Insomnia COPD Mycoplasma pneumonia Past Surgical History Thyroidectomy Reports: Hysterectomy Reports: Tubal ligation Family History Patient notes her father suffered from heart disease, and aware of any diseases on her mother's side Smoking History Former Smoker Social History Alcohol Use: Denies alcohol use Drug Use: Denies drug use Other Social History: Lives alone Ambulatory Status Independent Review of Systems Constitutional: Denies: Fever Respiratory: Reports: Non-productive cough, Shortness of breath Cardiovascular: Denies: Chest pain Complete sys rev & neg: except as marked. GI: Reports: Diarrhea, Denies: Vomiting Physical Exam Physical Exam Notes: Initial Vital Signs Vital Signs (First) Date Time Temp Pulse Resp B/P Pulse Ox O2 Delivery O2 Flow Rate FiO2 08/20/16 18:39 36.7 103 20 149/79 92 Room Air 08/20/16 19:12 2 Initial VS: Reviewed Head / Eyes: Atraumatic, Normocephalic ENT: Conjunctiva normal, No scleral icterus Skin: Warm, Dry, No cyanosis Neurologic: Alert, Oriented, Nonfocal Psychiatric: Mood/affect normal, Behavior normal, Normal thought content General/Constitutional: Awake, Alert Distress / Hydration: Positive: Distress moderate Neck: Supple, Full range of motion Respiratory / Chest: Breath sounds = bilat Resp Distress / Stridor: Positive: Resp distress moderate Wheezing / Retractions: Positive: Prolonged exp phase, Wheezing mild Poor air entry Cardiovascular: Heart rate NL, Regular rhythm, Heart sounds NL Interpretation & Diagnostics INFLUENZA NEGATIVE Lab Results Interpretation Result Diagram: 08/20/16192408/20/161924 Test 08/20/16 19:25 08/20/16 20:23 08/20/16 23:20 White Blood Count 9.3th/mm3 (3.8-10.1) Red Blood Count 4.42mil/mm3 (3.90-5.20) Hemoglobin 12.8g/dL (12.0-15.6) Hematocrit 40.1% (35.0-46.0) Mean Corpuscular Volume 90.7fL (81-100) Mean Corpuscular Hemoglobin 29.0pg (27.0-35.0) Mean Corpuscular Hemoglobin Concent 31.9% (32.0-37.0) Red Cell Distribution Width 14.1% (12.3-15.4) Platelet Count 224bil/L (150-400) Neutrophils (%) (Auto) 72.8% (40-74) Lymphocytes (%) (Auto) 19.6% (14-46) Monocytes (%) (Auto) 5.7% (4-12) Eosinophils (%) (Auto) 1.4% (0-5) Basophils (%) (Auto) 0.3% (0-3) Sodium Level 139mEq/L (134-144) Potassium Level 3.8mEq/L (3.5-5.2) Chloride Level 100mEq/L (97-108) Carbon Dioxide Level 24mmol/L (18-29) Blood Urea Nitrogen 12mg/dL (8-27) Creatinine 0.63mg/dL (0.57-1.00) Estimat Glomerular Filtration Rate 138mL/min (>59) Glucose Level 150mg/dL (60-99) Calcium Level 9.0mg/dL (8.5-10.1) Total Bilirubin 0.2mg/dL (0.0-1.2) Aspartate Amino Transf (AST/SGOT) 20U/L (0-50) Alanine Aminotransferase (ALT/SGPT) 24U/L (0-32) Alkaline Phosphatase 67U/L (25-165) Troponin T < 0.010ug/L (0.0-0.011) Pro-B-Type Natriuretic Peptide 104.3pg/mL (0-287) Total Protein 6.4g/dL (6.4-8.4) Albumin 3.6g/dL (3.4-5.0) Procalcitonin 0.04ng/mL (0.00-0.08) Urine Color Yellow (YELLOW) Urine Appearance Hazy (CLEAR,HAZY) Urine pH 5.0 (5.0-8.0) Urine Specific [place] 1.032 (1.003-1.035) Urine Protein Negativemg/dL (NEG,TRACE) Urine Glucose (UA) Negativemg/dL (NEGATIVE) Urine Ketones Negativemg/dL (NEGATIVE) Urine Occult Blood Negative (NEGATIVE) Urine Nitrite Negative (NEGATIVE) Urine Bilirubin Negative (NEGATIVE) Urine Urobilinogen Normalmg/dL (NORMAL) Urine Leukocyte Esterase Negative (NEGATIVE) Urine RBC 0-2/hpf (0-2) Urine WBC 0-5/hpf (0-5) Urine Epithelial Cells Few/hpf (NONE-MOD) Urine Crystals Oxalic acid crystals (NONE Urine Bacteria None/hpf (NONE-FEW) Urine Hyaline Casts None/lpf (NONE) Urine Granular Casts None seen (NONE SEEN) Urine Waxy Casts None seen (NONE SEEN) Urine Red Blood Cell Casts None seen (NONE SEEN) Urine White Blood Cell Casts None seen (NONE SEEN) Urine Mucus None seen (None Seen) Urine Trichomonas None seen (NONE SEEN) Urine Yeast None (NONE SEEN) Urinalysis Comment None Urine Culture Reflexed Not indicated Lactic Acid Level 6.4mmol/L (0.4-2.0) Thyroid Stimulating Hormone (TSH) 1.930uIU/mL (0.450-4.500) Free Thyroxine 0.86ng/dL (0.82-1.77) ECG Interpretation ECG Interpretation: Sinus tachycardia rate 113 Left axis deviation Anteroseptal infarct, old Q wave in leads V1 through V3 Poor R-wave progression Time: 20:27 Interpreted by: ED physician X-Ray Chest Interpretation Chest Xray Interpretation: IMPRESSION: No acute process. Dictated by: Gely Cooper M.D. on 08/20/2016 at 19:31 View: Portable, 1 view Interpretation / Wet Read by: Interpret - Radiologist Re-Eval/Medical Decision Source of Hx: Old records Re-Evaluation/Progress : Time of Eval: 21:35 )( Re-Eval Resp / Chest: Moderate wheezing Patient Status: Condition improved Re-Evaluation/Progress Note: Patient feels better but is still wheezing. Discussed with patient x-ray and lab results, diagnosis, and plan for admit. Patient agrees with plan for care and all questions were addressed. Consultation : Referral / Consult Name: Diogo Jimenez MD Consulted With: Hospitalist Call Returned at: 21:54 Journeyman Carpenter: Agrees with eval, Agrees with plan, Accepts admit Counseled Regarding: Diagnosis, Lab results, Need for admission Discharge & Departure Impression: Primary Impression: Respiratory distress Additional Impression: Acute exacerbation of chronic obstructive pulmonary disease (COPD) Disposition: ADMITTED TO HOSPITAL Discharge Condition All VS Reviewed: Yes Condition: Improved Referrals: Federica Gale (PCP) Scribk[employer] Attestation Portions of this note were transcribed by Jocelynn Moreira. I, Dr. Ag, personally performed the history, physical exam, and medical decision-making; I reviewed and confirmed the accuracy of the information in the transcribed note. Signed by: Andre Patton, 08/20/2016, 23:30 copies to: Federica Gale Todd P DO August 20, 2016 18:56 JOCELYNN MOREIRA August 20, 2016 19:02
[2016-08-20] MEDS ORDERED: 0.9% Sodium Chloride 1,000 ML IV ONE (18:58)
[2016-08-20] MEDS ORDERED: MethylprednisoLONE Sodium Succinate 62.5 mg/mL 2 mL Inj IVPUSH ONE (19:00)
[2016-08-20] MEDS ORDERED: Albuterol 2.5 mg/3 mL Inhalation Solution NEB ONE ×2 (19:00→19:25)
[2016-08-20] MEDS ORDERED: Albuterol-Ipratropium 3 mL Inhalation Solution NEB ONE (19:00)
[2016-08-20 19:12] VITALS: PULSE 95; RESP 21; O2SAT 96
[2016-08-20 19:33] VITALS: PULSE 101; RESP 24; O2SAT 97
--- NOTE | 2016-08-20 19:33 | DRSVH ---
PROCEDURE: X-RAY CHEST ONE VIEW, PORTABLE ([id number]) INDICATIONS: fever, cough TECHNIQUE: One view of the chest was acquired. COMPARISON: [facility], CT, CT ANGIO CHEST PE, 08/02/2016, 11:36. [facility] , CR, XR CHEST 1VW (PORTABLE), 08/02/2016, 9:02. FINDINGS: Surgical changes and devices: None. Lungs and pleura: No pleural effusions or pneumothorax. Lungs are clear. Mediastinum: Mediastinal contours appear normal. Heart size is normal. Bones and chest wall: No suspicious bony lesions. Overlying soft tissues appear unremarkable. IMPRESSION: No acute process. Dictated by: Gely Cooper M.D. on 08/20/2016 at 19:31 Approved by: Gely Cooper M.D. on 08/20/2016 at 19:32
[2016-08-20 19:43] LABS: BASOPHILS % (AUTO) 0.3 % (0-3); EOSINOPHILS % (AUTO) 1.4 % (0-5); MONOCYTES % (AUTO) 5.7 % (4-12); Mean Corpuscular Volume 90.7 fL (81-100); NEUTROPHILS % (AUTO) 72.8 % (40-74); Platelet Count 224 bil/L (150-400)
[2016-08-20 20:13] LABS: TROPONIN T < 0.010 ug/L (0.0-0.011)
[2016-08-20 21:06] VITALS: BP_SYST 127; BP_SYST 132; BP_DIAS 48; BP_DIAS 81; PULSE 110; RESP 23; O2SAT 92
[2016-08-20 21:08] LABS: APPEARANCE,URINE HAZY (CLEAR,HAZY); COLOR,URINE YELLOW (YELLOW); OCCULT BLOOD,URINE NEGATIVE (NEGATIVE); UROBILINOGEN,URINE NORMAL (NORMAL)
[2016-08-20] MEDS ORDERED: cefTRIAXone Inj 2,000 MG in Dextrose 5% Minibag Plus 50 ML IV ONE (21:50)
[2016-08-20] MEDS ORDERED: Polyethylene Glycol (PEG) 17 Gm Powder PO PRN (22:05)
[2016-08-20] MEDS ORDERED: Alum-Mag Hydrox-Simeth 30 mL Suspension PO PRN (22:05)
[2016-08-20] MEDS ORDERED: Ondansetron 2 mg/mL 2 mL Inj IVPUSH PRN (22:05)
[2016-08-20] MEDS ORDERED: Albuterol 2.5 mg/3 mL Inhalation Solution NEB PRN (23:00)
--- NOTE | 2016-08-20 23:11 | PCM.HPMED ---
Subjective Date of Service August 20, 2016 Primary Provider: Admitting Physician: Primary Care Physician: Federica Gale Attending Physician: Admit Status: From the Emergency Department, Non-Telemetry Chief Complaint: Shortness of breath, respiratory distress History of Present Illness: A 61 year old female with a medical history including COPD, chronic bronchitis, anxiety, and bipolar disorder presents to the ED with increasing shortness of breath over the past one week, worsening significantly last night. The patient also reports of productive cough. She denies fever or other symptoms. Patient was hospitalized from 08/02-08/05 diagnosed with mycoplasma pneumonia and COPD exacerbation, was discharged on antibiotics and a prednisone taper, which patient was compliant with. Patient states for a brief time thereafter, she was doing quite well, although never felt completely back to her baseline. Patient also endorses ongoing diarrhea since last admit. Patient states she has never had spirometry testing, and is scheduled for one next month. In the ED vitals T 36.7, P 103, R 20, BP 149/79, oxygen 92% on RA. Labs significant only for glucose of 150, otherwise unremarkable. Patient admitted for further treatment and management. Review of Systems: Constitutional: Denies: Fever Respiratory: Reports: Non-productive cough, Shortness of breath Cardiovascular: Denies: Chest pain GI: Denies: Diarrhea, Vomiting Complete sys rev & neg: except as marked. A comprehensive review of systems has been conducted with the patient and found to be negative except what is mentioned above or in the HPI. Allergies Coded Allergies: codeine (Verified Allergy, Intermediate, stomach pain, 08/02/16) lisinopril (Verified Allergy, Intermediate, rash, 08/02/16) Penicillins (Verified Adverse Reaction, Mild, nausea, hives, 08/02/16) Home Medications Cefuroxime Axetil (Cefuroxime) 500 Mg Tablet 500 MG PO BID Lamotrigine (Lamotrigine) 200 Mg Tablet 200 MG PO HS Multivitamin (Once Daily) 1 Each Tablet 1 EACH PO DAILY Prednisone (PredniSONE) 50 Mg Tablet 20 MG PO DAILY Take 3 tabs (60mg) daily X2 days,then take 2 tabs (40mg) daily X4 days, then 1 tab (20mg) daily X4 days,then discontinue Trazodone (Trazodone) 50 Mg Tablet 100 MG PO HS Scheduled PRN Albuterol HFA (Proair HFA) 8.5 Gm Hfa.aer.ad 1-2 PUFFS INH Q4H PRN PRN For Shortness of Breath Clonazepam (Clonazepam) 1 Mg Tablet 1 MG PO TID PRN PRN For Anxiety PMH Stroke Chronic bronchitis Bipolar disorder Anxiety Insomnia COPD Mycoplasma pneumonia Surgical History Thyroidectomy Hysterectomy Tubal ligation Family History Patient notes her father suffered from heart disease, unaware of any diseases on her mother's side Social History Hx Alcohol Use: No Hx Substance Use: Yes (meth - last used March 2016, marijuana years ago) Smoking Status: Former Smoker (smoked 40 years, quit 08/02/16 upon last admit) Living Arrangement: Alone Exam Vital Signs Vital Sign - Last Date Time Temp Pulse Resp B/P Pulse Ox O2 Delivery O2 Flow Rate FiO2 08/20/16 21:06 36.5 110 23 132/81 92 Room Air 08/20/16 19:33 2 Exam General: Alert, Oriented X3, Cooperative, No acute distress. Eyes: PERRLA, EOMI, No scleral icterus, Conjunctiva normal, Mouth: Mucous Membrane Moist/[place] Neck: Supple Chest & Lungs: Coarse breath sounds with diffuse expiratory wheezes, with prolonged expiratory phase. Moderate respiratory distress Cardiovascular: Regular Rate/Rhythm, I/ systolic murmur, no gallops or rubs Abdomen: Non-tender, Non-distended, Obese Extremities: No cyanosis/clubbing bilat, trace pitting edema to mid lower legs bilaterally Skin: Warm, Dry, No cyanosis Neurological: no focal deficits Psychiatric: Mood/affect normal, Behavior normal, Normal thought content Lab and Diagnostics Result Diagram: 08/20/16192408/20/161924 X-Rays, CTs and MRIs Chest Xray Interpretation: IMPRESSION: No acute process. Dictated by: Gely Cooper M.D. on 08/20/2016 at 19:31 View: Portable, 1 view Interpretation / Wet Read by: Interpret - Radiologist Assessment & Plan A 61 year old female with a medical history including COPD, chronic bronchitis, anxiety, and bipolar disorder presents to the ED with increasing shortness of breath over the past week, worsening significantly last night. The patient also reports associated symptom of cough. She denies fever or other symptoms. Two weeks ago the patient was discharged from the hospital after a three night stay with mycoplasma pneumonia and COPD exacerbation. She is currently being tested for a C.Diff infection due to experiencing diarrhea "for some time." Acute respiratory failure secondary to COPD exacerbation, present on admission. Acute. - Patient received 2 g of ceftriaxone in ED - Patient afebrile, no leukocytosis, procalcitonin negative, exacerbation most likely due to viral etiology, will hold off on further antibiotics treatment at this time - Continue to provide supplemental oxygen as needed - Duonebs Q4-6 hours - Albuterol Q2 hours PRN - Solu-Medrol 125mg IV given in ED, will continue Q8H, consider titrating down to 60mg IV twice daily if patient shows improvement in am Lactic acidosis. Present on admission Due to tissue hypoxia or due to Albuterol induced lactic acidosis - trending till normal - continue IV fluids Diarrhea, present on admission.Ongoing. - Patient has been on multiple courses of antibiotics - C. difficile PCR pending - IV fluids Fatigue, present on admission. Ongoing. - Patient had total thyroidectomy many years ago and was on replacement therapy for some time thereafter, patient has not been taking any thyroid medications now for within 10 years after moving to an area - TSH pending Chronic conditions: COPD/bronchitis - Duonebs as above - Supplemental oxygen to the provided as needed - Patient is scheduled for outpatient spirometry in 1 month Bipolar disorder - continue home medication lamotrigine Insomina - Continue home medication trazodone Anxiety - Continue home medication clonazepam held, patient states has not been taking Acetaminophen-fever/headache/mild/moderate pain Antiemetics, as needed Bowel regimen, as needed. Patient status: Patient was admitted under inpatient status with expected length of stay greater than two midnights due to severity of presenting symptoms , risk of adverse event, and complexity of treatment plan. Pain Evaluation: Adequate Pain Control GI Prophylaxis: Not indicated VTE Prophylaxis: Sub-Q Enoxaparin Resuscitation Status: CPR: Attempt Resuscitation Attending Statement The patient was seen and examined together with Dr. Burgos on 08/20 and I agree with the history, exam and plan as outlined in the note above. Natasha Burgos DO August 20, 2016 22:11 Diogo Jimenez MD August 21, 2016 01:40
[2016-08-20] MEDS: 0.9% Sodium Chloride 1,000 ML IV SCH (23:36)
[2016-08-20 23:37] VITALS: BP 130/77; PULSE 97; RESP 18; O2SAT 94
[2016-08-21] VITALS (17 sets, daily range): BP systolic 108–143; BP diastolic 42–72; PULSE 88–109; RESP 16–22; O2SAT 91–99
[2016-08-21] MEDS: Sodium Chloride LOK Flush 10 mL Syringe IVFLUSH SCH ×4 (00:30→23:20)
[2016-08-21] MEDS: Albuterol-Ipratropium 3 mL Inhalation Solution NEB SCH ×6 (00:30→20:37)
[2016-08-21] MEDS: lamoTRIgine 100 mg Tablet PO SCH ×2 (01:09→20:43)
[2016-08-21 02:40] LABS: BASOPHILS % (AUTO) 0.2 % (0-3); EOSINOPHILS % (AUTO) 0.1 % (0-5); MONOCYTES % (AUTO) 0.4 % (4-12); Mean Corpuscular Hemoglobin 28.8 pg (27.0-35.0); NEUTROPHILS % (AUTO) 96.2 % (40-74); Platelet Count 237 bil/L (150-400)
[2016-08-21] MEDS ORDERED: 0.9% Sodium Chloride 500 ML IV ONE (03:20)
--- NOTE | 2016-08-21 03:43 | ABG ---
DateTimeAnalyzed 03:39:00 -_ pH ____7.298 - 7.350 7.450 pCO2 ___34.6__ -mmHg 35.0 45.0 pO2 ___76.8__ -mmHg 69.0 116 HCO3- ___16.4__ -mmol/L 22.0 26.0 ABE ___-8.7__ -mmol/L -2.0 2.0 tHb ___12.2__ -g/dL O2Hb ___93.9__ -% COHb ____0.6__ -% MetHb ____0.9__ -% sO2 ___95.3__ -% FIO2 ___21.0__ -% Drawn By MM - Date/Time Notified____ 03:43:00 -_ Spontaneous_RR ___18.0__ -b/min Notified Whom Smitha B. RN - B 758 -mmHg tO2 ___16.1__ -Vol% Ortiz test _Positive -
[2016-08-21] MEDS ORDERED: MethylprednisoLONE Sodium Succinate 62.5 mg/mL 2 mL Inj IVPUSH SCH (04:00)
[2016-08-21] MEDS ORDERED: 0.9% Sodium Chloride 1,000 ML IV ONE (04:50)
[2016-08-21] MEDS ORDERED: guaiFENesin 600 mg ER12 Tablet PO ONE (04:55)
[2016-08-21] MEDS: 0.9% Sodium Chloride 1,000 ML IV SCH ×3 (06:02→21:43)
--- NOTE | 2016-08-21 14:37 | DRSVH ---
PROCEDURE: CT CHEST, ABDOMEN AND PELVIS [facility] CONTRAST ([id number]) INDICATIONS: cough, diarrhea, lactic acidosis TECHNIQUE: After the administration of oral and intravenous contrast, 5 mm thick sections acquired from the lung apices to the symphysis. 5 mm coronal and sagittal reformats were performed, with additional 7 mm c oronal MIP reformats through the lungs. For radiation dose reduction, the following was used: autom ated exposure control, adjustment of mA and/or kV according to patient size. COMPARISON: [facility], CT, CT ANGIO CHEST PE, 08/02/2016, 11:36. FINDINGS: Image quality: Excellent. CHEST: Lungs and pleura: Right lower lobe contusion has resolved. There is left basilar atelectasis. No acu te airspace opacities. No pleural effusions or pneumothorax. Central and peripheral airways appear patent and normal in caliber. Mediastinum: Heart size is normal. No pericardial effusion. No mediastinal or hilar adenopathy by size criteria. Thoracic aorta and central pulmonary arteries are normal in size. Esophagus is soo l in caliber. There is a small hiatal hernia and mild concentric thickening of the distal esophagus. Chest wall: No axillary or supraclavicular adenopathy by size criteria. The left thyroid lobe is abs ent. The right cerebral is normal. ABDOMEN: Solid organs: Mild hepatic steatosis. Liver and spleen are normal in size and enhancement. Gallblad mariaa is normal. Biliary system is non dilated. Pancreas enhances normally. No adrenal nodules. Kid neys demonstrate normal size and enhancement, without hydronephrosis. Peritoneum and bowel: Bowel loops demonstrate normal wall thickness and caliber. There is lipomatos is or a fatty mass in the ileocecal valve. There are scattered colonic diverticula. No evidence for a ctive diverticulitis. No free fluid or air. Nodes and vessels: No retroperitoneal or mesenteric adenopathy by size criteria. Aorta and inferior vena cava are normal in size. Miscellaneous: No ventral hernias. PELVIS: Genitourinary: Bladder wall thickness is normal. Miscellaneous: No inguinal hernias or adenopathy. Bones: No suspicious bony lesions. No vertebral body compression fractures. There is degenerative changes in lumbar spine. There is distal lumbar spine central canal stenosis. IMPRESSION: 1. Lipomatosis versus a fatty mass (lipoma) in the ileocecal valve. 2. Left basilar atelectasis. 3. Small hiatal hernia and concentric thickening of the distal esophagus. If clinically indicated, fu rther evaluation with upper GI series or upper endoscopy is suggested. 4. Hepatic steatosis. 3. Degenerative changes in lumbar spine with distal lumbar spine central canal stenosis. Dictated by: Ashtyn Block M.D. on 08/21/2016 at 14:27 Transcribed by: LARRY on 08/21/2016 at 14:37 Approved by: Ashtyn Block M.D. on 08/22/2016 at 10:46
--- NOTE | 2016-08-21 19:54 | PCM.PNMED ---
Subjective Date of Service August 21, 2016 Subjective A 61 year old female with a medical history including COPD, chronic bronchitis, anxiety, and bipolar disorder presents to the ED with increasing shortness of breath over the past one week, worsening significantly . Today is hospital day 2. This morning, she continues to have some dyspnea, but it has improved since being admitted. She does not have abdominal pain. She has diarrhea and has since she was discharged about 2 weeks ago. She does not have nausea, vomiting, or dysuria. Exam Vital Signs Vital Sign - Last Date Time Temp Pulse Resp B/P Pulse Ox O2 Delivery O2 Flow Rate FiO2 08/21/16 16:31 36.8 107 18 140/61 96 Room Air 08/20/16 23:50 2 Intake and Output 08/20/16 08/20/16 08/21/16 Cumulative From/Thru 15:00 23:00 07:00 08/20/16 18:39 - 08/21/16 04:57 Intake Total 2250 ml 2250 ml Output Total 300 ml 300 ml Balance 1950 ml 1950 ml Intake Oral 250 ml 250 ml IV Total 2000 ml 2000 ml Output Urine Total 300 ml 300 ml # Bowel Movements 0 0 Exam General: Alert, Oriented X3, Cooperative, No acute distress. Eyes: PERRLA, EOMI, No scleral icterus, Conjunctiva normal, Mouth: Mucous Membrane Moist/[place] Neck: Supple Chest & Lungs: Scattered bilateral end-expiratory wheezes, with prolonged expiratory phase. No acute respiratory distress. Normal respiratory effort with no accessory muscles Cardiovascular: Regular Rate/Rhythm, I/ systolic murmur, no gallops or rubs Abdomen: Non-tender, Non-distended, Obese Extremities: No cyanosis/clubbing bilat, trace pitting edema to mid lower legs bilaterally Skin: Warm, Dry, No cyanosis Neurological: no focal deficits Psychiatric: Mood/affect normal, Behavior normal, Normal thought content IVs and Medications Medications Reviewed: Medications were reviewed in detail Lab and Diagnostics Result Diagram: 08/21/16 0230 08/21/16 0230 X-Rays, CTs and MRIs Chest Xray Interpretation: IMPRESSION: No acute process. Dictated by: Gely Cooper M.D. on 08/20/2016 at 19:31 View: Portable, 1 view Interpretation / Wet Read by: Interpret - Radiologist DRAFT PROCEDURE: CT CHEST, ABDOMEN AND PELVIS [facility] CONTRAST ([id number]) IMPRESSION: 1. Lipomatosis versus a fatty mass (lipoma) in the ileocecal valve. 2. Left basilar atelectasis. 3. Small hiatal hernia. Dictated by: Ashtyn Block M.D. on 08/21/2016 at 14:27 Transcribed by: LARRY on 08/21/2016 at 14:37 Assessment & Plan A 61 year old female with a medical history including COPD, chronic bronchitis, anxiety, and bipolar disorder presents to the ED with increasing shortness of breath over the past week, worsening significantly last night. The patient also reports associated symptom of cough. She denies fever or other symptoms. Two weeks ago the patient was discharged from the hospital after a three night stay with mycoplasma pneumonia and COPD exacerbation. She is currently being tested for a C.Diff infection due to experiencing diarrhea "for some time." Acute respiratory failure secondary to COPD exacerbation, present on admission. Improving. - Patient received 2 g of ceftriaxone in ED - Patient afebrile, no leukocytosis, procalcitonin negative, exacerbation most likely due to viral etiology, will hold off on further antibiotics treatment at this time - Left basilar atelectasis on CT scan - Continue to provide supplemental oxygen as needed - Duonebs Q4-6 hours - Albuterol Q2 hours PRN - Solu-Medrol 125mg IV given in ED decreased to 40mg IV twice daily with the plan to transition to PO prednisone 40 mg BID if patient shows improvement in am - Incentive spirometer and acapella Lactic acidosis. Present on admission, Improving Due to tissue hypoxia or due to Albuterol - CT scan did not show any ischemic or acute infectious process as the cause - Level was rising today but now it is decreasing - Continue trending until normal - continue IV normal saline fluids at 150 ml/hr Diarrhea, present on admission.Ongoing. - Patient has been on multiple courses of antibiotics - CT as above - C. difficile PCR negative - Stool PCR pending - IV fluids as above - Started Florastor twice per day Fatigue, present on admission. Ongoing. - Patient had total thyroidectomy many years ago and was on replacement therapy for some time thereafter, patient has not been taking any thyroid medications now for within 10 years after moving to an area - TSH within normal Chronic conditions: COPD/bronchitis - Duonebs as above - Supplemental oxygen to the provided as needed - Patient is scheduled for outpatient spirometry in 1 month Bipolar disorder - continue home medication lamotrigine Insomina - Continue home medication trazodone Anxiety - Home medication clonazepam held, patient states has not been taking Acetaminophen-fever/headache/mild/moderate pain Antiemetics, as needed Bowel regimen, as needed. GI Prophylaxis: Not indicated VTE Prophylaxis: Sub-Q Enoxaparin Resuscitation Status: CPR: Attempt Resuscitation Attending Statement The patient was seen and examined together with Dr. Boyd on 08-21-16 and I agree with the history, exam and plan as outlined in the note above. Reyna Boyd DO August 21, 2016 18:08 Manuel Dash MD Sep 03, 2016 06:57
[2016-08-21] MEDS: MethylprednisoLONE Sodium Succinate 40 mg/mL Inj IVPUSH SCH (20:44)
[2016-08-21] MEDS ORDERED: lamoTRIgine 100 mg Tablet PO SCH (21:00)
[2016-08-22] VITALS (12 sets, daily range): BP systolic 112–153; BP diastolic 64–79; PULSE 85–107; RESP 16–22; O2SAT 92–98
[2016-08-22] MEDS: Albuterol-Ipratropium 3 mL Inhalation Solution NEB SCH ×6 (00:50→20:21)
[2016-08-22] MEDS: 0.9% Sodium Chloride 1,000 ML IV SCH ×4 (02:43→22:25)
[2016-08-22 03:22] LABS: BASOPHILS % (AUTO) 0.1 % (0-3); EOSINOPHILS % (AUTO) 0 % (0-5); MONOCYTES % (AUTO) 2.1 % (4-12); Mean Corpuscular Hemoglobin 29.4 pg (27.0-35.0); Mean Corpuscular Volume 89.5 fL (81-100); NEUTROPHILS % (AUTO) 92.3 % (40-74); Platelet Count 239 bil/L (150-400)
[2016-08-22] MEDS: Sodium Chloride LOK Flush 10 mL Syringe IVFLUSH SCH ×2 (08:30→16:30)
[2016-08-22] MEDS: MethylprednisoLONE Sodium Succinate 40 mg/mL Inj IVPUSH SCH (09:11)
[2016-08-22] MEDS: levoFLOXacin Inj 750 MG in IV Premix 1 EACH IV SCH (15:13)
--- NOTE | 2016-08-22 18:17 | PCM.PNMED ---
Subjective Date of Service August 22, 2016 Subjective A 61 year old female with a medical history including COPD, chronic bronchitis, anxiety, and bipolar disorder presents to the ED with increasing shortness of breath over the past one week, worsening significantly . Today is hospital day 3. This morning, she reports that she continues to have a productive cough with clear sputum. She has dyspnea this morning because she did not want a breathing treatment last night. She continues to have diarrhea but it is slightly more formed today. She does not have abdominal pain or dysuria. Exam Vital Signs Vital Sign - Last Date Time Temp Pulse Resp B/P Pulse Ox O2 Delivery O2 Flow Rate FiO2 08/22/16 15:53 36.7 107 18 144/77 94 Room Air 08/20/16 23:50 2 Intake and Output 08/21/16 08/21/16 08/22/16 Cumulative From/Thru 15:00 23:00 07:00 08/20/16 18:39 - 08/22/16 06:04 Intake Total 3194 ml 1712 ml 7156 ml Output Total 1650 ml 1200 ml 3150 ml Balance 1544 ml 512 ml 4006 ml Intake Oral 700 ml 218 ml 1168 ml IV Total 2494 ml 1494 ml 5988 ml Output Urine Total 1650 ml 1200 ml 3150 ml # Bowel Movements 1 1 Exam General: Alert, Oriented X3, Cooperative, No acute distress. Eyes: PERRLA, EOMI, No scleral icterus, Conjunctiva normal, Mouth: Mucous Membrane Moist/[place] Neck: Supple Chest & Lungs: Diffuse scattered bilateral end-expiratory wheezes, with prolonged expiratory phase. No acute respiratory distress. Normal respiratory effort with no accessory muscles Cardiovascular: Regular Rate/Rhythm, I/ systolic murmur, no gallops or rubs Abdomen: Non-tender, Non-distended, Obese Extremities: No cyanosis/clubbing bilat, trace pitting edema to mid lower legs bilaterally Skin: Warm, Dry, No cyanosis Neurological: no focal deficits Psychiatric: Mood/affect normal, Behavior normal, Normal thought content IVs and Medications Medications Reviewed: Medications were reviewed in detail Lab and Diagnostics Result Diagram: 08/22/16 03108/22/16 031 X-Rays, CTs and MRIs Chest Xray Interpretation: IMPRESSION: No acute process. Dictated by: Gely Cooper M.D. on 08/20/2016 at 19:31 View: Portable, 1 view Interpretation / Wet Read by: Interpret - Radiologist DRAFT PROCEDURE: CT CHEST, ABDOMEN AND PELVIS [facility] CONTRAST ([id number]) IMPRESSION: 1. Lipomatosis versus a fatty mass (lipoma) in the ileocecal valve. 2. Left basilar atelectasis. 3. Small hiatal hernia. Dictated by: Ashtyn Block M.D. on 08/21/2016 at 14:27 Transcribed by: LARRY on 08/21/2016 at 14:37 Assessment & Plan A 61 year old female with a medical history including COPD, chronic bronchitis, anxiety, and bipolar disorder presented to the ED with increasing shortness of breath over the past week Acute hypoxic respiratory failure secondary to COPD exacerbation, present on admission. Improving. - Positive rhinovirus/enterovirus - Patient received 2 g of ceftriaxone in ED - Patient afebrile, no leukocytosis, procalcitonin negative with an exacerbation most likely due to viral etiolog. Originally, antibiotics were held. However, lactic acidosis continues to remain elevated and pt has leukocytosis so antibiotics were initiated. - Left basilar atelectasis on CT scan - Continue to provide supplemental oxygen as needed - Duonebs Q4-6 hours - Albuterol Q2 hours PRN - Solu-Medrol 125mg IV given in ED decreased to 40mg IV twice daily and transitioned to PO prednisone 40 mg BID - Incentive spirometer and acapella - Start levofloxacin 750 mg IV once daily Lactic acidosis. Present on admission, Improving but persistent. Due to tissue hypoxia or due to Albuterol - CT scan did not show any ischemic or acute infectious process as the cause - Level was rising today but now it is decreasing - Continue trending until normal - continue IV normal saline fluids at 250 ml/hr - Levofloxacin as above Diarrhea, present on admission.Ongoing. - Patient has been on multiple courses of antibiotics - CT as above - C. difficile PCR negative - Stool PCR negative - IV fluids as above - Started Florastor twice per day Fatigue, present on admission. Ongoing. - Patient had total thyroidectomy many years ago and was on replacement therapy for some time thereafter, patient has not been taking any thyroid medications now for within 10 years after moving to an area - TSH within normal Chronic conditions: COPD/bronchitis - Duonebs as above - Supplemental oxygen to the provided as needed - Patient is scheduled for outpatient spirometry in 1 month Bipolar disorder - continue home medication lamotrigine Insomina - Continue home medication trazodone Anxiety - Home medication clonazepam held, patient states has not been taking Acetaminophen-fever/headache/mild/moderate pain Antiemetics, as needed Bowel regimen, as needed. GI Prophylaxis: Not indicated VTE Prophylaxis: Sub-Q Enoxaparin Resuscitation Status: CPR: Attempt Resuscitation Attending Statement Patient seen and examined with house staff. Agree with all attached documentation. Reyna oByd DO August 22, 2016 17:28 Ortiz Carolina MD August 23, 2016 16:17
[2016-08-22] MEDS: predniSONE 20 mg Tablet PO SCH (20:33)
[2016-08-22] MEDS: lamoTRIgine 100 mg Tablet PO SCH (20:34)
[2016-08-23] VITALS (18 sets, daily range): BP systolic 128–156; BP diastolic 68–85; PULSE 81–97; RESP 16–32; O2SAT 95–98
[2016-08-23] MEDS: Sodium Chloride LOK Flush 10 mL Syringe IVFLUSH SCH ×4 (00:41→21:10)
[2016-08-23] MEDS: 0.9% Sodium Chloride 1,000 ML IV SCH ×5 (00:41→21:10)
[2016-08-23] MEDS: Albuterol-Ipratropium 3 mL Inhalation Solution NEB SCH ×4 (01:10→12:16)
[2016-08-23 02:15] LABS: BASOPHILS % (AUTO) 0.1 % (0-3); EOSINOPHILS % (AUTO) 0 % (0-5); MONOCYTES % (AUTO) 2.4 % (4-12); Mean Corpuscular Hemoglobin 28.4 pg (27.0-35.0); Mean Corpuscular Volume 87.6 fL (81-100); NEUTROPHILS % (AUTO) 89.3 % (40-74); Platelet Count 237 bil/L (150-400)
[2016-08-23] MEDS: predniSONE 20 mg Tablet PO SCH (10:12)
[2016-08-23] MEDS: levoFLOXacin Inj 750 MG in IV Premix 1 EACH IV SCH (10:12)
--- NOTE | 2016-08-23 13:46 | PCM.PNMED ---
Subjective Date of Service August 23, 2016 Subjective A 61 year old female with a medical history including COPD, chronic bronchitis, anxiety, and bipolar disorder presents to the ED with increasing shortness of breath over the past one week, worsening significantly . Today is hospital day 4. She reports that her breathing has improved but she feels fatigued and not back to normal. She does not have abdominal pain or dysuria. She continues to have diarrhea. She does not have history of hepatitis A, B, or C. She does not drink alcohol. She used a CPAP machine in the past but has not for years. Exam Vital Signs Vital Sign - Last Date Time Temp Pulse Resp B/P Pulse Ox O2 Delivery O2 Flow Rate FiO2 08/23/16 05:17 85 08/23/16 04:53 36.7 20 139/75 98 OxyMask 5.00 Intake and Output 08/22/16 08/22/16 08/23/16 Cumulative From/Thru 15:00 23:00 07:00 08/20/16 18:39 - 08/23/16 05:55 Intake Total 3077 ml 2347 ml 73244 ml Output Total 100 ml 1300 ml 4550 ml Balance 2977 ml 1047 ml 8030 ml Intake Oral 877 ml 400 ml 2445 ml IV Total 2200 ml 1947 ml 60083 ml Output Urine Total 100 ml 1300 ml 4550 ml # Bowel Movements 2 3 Exam General: Alert, Oriented X3, Cooperative, No acute distress. Eyes: PERRLA, EOMI, No scleral icterus, Conjunctiva normal, Mouth: Mucous Membrane Moist/[place] Neck: Supple Chest & Lungs: Clear to auscultation bilaterally with prolonged expiratory phase. No acute respiratory distress. Normal respiratory effort with no accessory muscles Cardiovascular: Regular Rate/Rhythm, I/ systolic murmur, no gallops or rubs Abdomen: Non-tender, Non-distended, Obese Extremities: No cyanosis/clubbing bilat, trace pitting pedal edema bilaterally Skin: Warm, Dry, No cyanosis Neurological: no focal deficits Psychiatric: Mood/affect normal, Behavior normal, Normal thought content IVs and Medications Medications Reviewed: Medications were reviewed in detail Lab and Diagnostics Result Diagram: 08/23/16 0206 08/23/16 0206 X-Rays, CTs and MRIs Chest Xray Interpretation: IMPRESSION: No acute process. Dictated by: Gely Cooper M.D. on 08/20/2016 at 19:31 View: Portable, 1 view Interpretation / Wet Read by: Interpret - Radiologist PROCEDURE: CT CHEST, ABDOMEN AND PELVIS WTIH CONTRAST IMPRESSION: 1. Lipomatosis versus a fatty mass (lipoma) in the ileocecal valve. 2. Left basilar atelectasis. 3. Small hiatal hernia and concentric thickening of the distal esophagus. If clinically indicated, further evaluation with upper GI series or upper endoscopy is suggested. 4. Hepatic steatosis. 3. Degenerative changes in lumbar spine with distal lumbar spine central canal stenosis. Approved by: Ashtyn Block M.D. on 08/22/2016 at 10:46 Assessment & Plan A 61 year old female with a medical history including COPD, chronic bronchitis, anxiety, and bipolar disorder presented to the ED with increasing shortness of breath over the past week Acute respiratory failure secondary to COPD exacerbation, present on admission. Improving. - Positive rhinovirus/enterovirus - Patient received 2 g of ceftriaxone in ED - Patient afebrile, no leukocytosis, procalcitonin negative with an exacerbation most likely due to viral etiology. Originally, antibiotics were held. However, lactic acidosis continues to remain elevated and pt has leukocytosis so antibiotics were initiated. - Left basilar atelectasis on CT scan - Continue to provide supplemental oxygen as needed - Solu-Medrol 125mg IV given in ED, transitioned to PO prednisone 40 mg once daily - Incentive spirometer and acapella - Hold Duonebs Q4-6 hours - Hold Albuterol Q2 hours PRN - Start ipratropium nebulizers every 6 hours - Start levofloxacin 750 mg IV once daily Lactic acidosis. Present on admission, Improving Due to tissue hypoxia or due to Albuterol - CT scan did not show any ischemic or acute infectious process as the cause - Level was rising but now it is decreasing - Continue trending until normal - continue IV normal saline fluids at 200 ml/hr - Hold albuterol nebulizers and use only ipratropium for now - Levofloxacin as above Diarrhea, present on admission.Ongoing. - Patient has been on multiple courses of antibiotics - CT as above - C. difficile PCR negative - Stool PCR negative - IV fluids as above - Started Florastor twice per day Fatigue, present on admission. Ongoing. - Patient had total thyroidectomy many years ago and was on replacement therapy for some time thereafter, patient has not been taking any thyroid medications now for within 10 years after moving to an area - TSH within normal - Patient reports using a CPAP in the past but has not for years - Possibly secondary to LOR[place] Chronic conditions: COPD/bronchitis - Duonebs as above - Supplemental oxygen to the provided as needed - Patient is scheduled for outpatient spirometry in 1 month Bipolar disorder - continue home medication lamotrigine [place] - Continue home medication trazodone Anxiety - Home medication clonazepam held, patient states has not been taking Acetaminophen-fever/headache/mild/moderate pain Antiemetics, as needed Bowel regimen, as needed. Disposition: Likely discharge to home in the next 1-2 days pending improvement of lactic acidosis. GI Prophylaxis: Not indicated VTE Prophylaxis: Sub-Q Enoxaparin Resuscitation Status: CPR: Attempt Resuscitation Attending Statement Patient seen and examined with house staff. Agree with all attached documentation. Reyna Boyd DO August 23, 2016 07:42 Ortiz Carolina MD August 23, 2016 16:29
[2016-08-23] MEDS: Ipratropium 0.02% 0.5 mg/2.5 mL Inhalation Solution NEB SCH ×2 (15:30→20:34)
[2016-08-23] MEDS: lamoTRIgine 100 mg Tablet PO SCH (21:10)
[2016-08-24] VITALS (7 sets, daily range): BP systolic 153–164; BP diastolic 66–92; PULSE 73–91; RESP 16–18; O2SAT 94–96
[2016-08-24] MEDS: 0.9% Sodium Chloride 1,000 ML IV SCH ×3 (00:29→06:10)
[2016-08-24] MEDS: Ipratropium 0.02% 0.5 mg/2.5 mL Inhalation Solution NEB SCH ×2 (02:20→07:45)
[2016-08-24 04:21] LABS: BASOPHILS % (AUTO) 0.2 % (0-3); EOSINOPHILS % (AUTO) 0.8 % (0-5); Mean Corpuscular Hemoglobin 28.7 pg (27.0-35.0); Mean Corpuscular Volume 86.7 fL (81-100); NEUTROPHILS % (AUTO) 63.7 % (40-74); Platelet Count 214 bil/L (150-400)
[2016-08-24] MEDS ORDERED: levoFLOXacin 750 mg Tablet PO SCH (07:30)
[2016-08-24] MEDS: Sodium Chloride LOK Flush 10 mL Syringe IVFLUSH SCH (08:14)
[2016-08-24] MEDS ORDERED: predniSONE 20 mg Tablet PO SCH (08:30)
[2016-08-24] MEDS ORDERED: PRED-508 PO (10:32)
[2016-08-24] MEDS ORDERED: SACC250C PO (10:32)
[2016-08-24] MEDS ORDERED: ALBU8.5H2 INH (10:32)
[2016-08-24] MEDS ORDERED: LEVO750T9 PO (10:32)
[2016-08-24] MEDS ORDERED: ATRINH INH (10:32)
--- NOTE | 2016-08-24 10:40 | PCM.DIMED ---
Reyna Boyd DO 08/24/16 0806: Discharge Instructions Date of Service August 24, 2016 Dates of Hospitalization August 20, 2016 at 23:59 Discharge Diagnosis Discharge Diagnosis You had a COPD flare and an upper respiratory virus infection called rhinovirus/ enterovirus. You also had an elevated lactic acid level. Diet Discharge Diet: No restrictions Activity Discharge Activity: Limited until seen by PCP Call your provider Call your provider for: Fever or Chills, Shortness of breath, Bleeding, Chest pain, Vomitting, Excessive diarrhea, Weakness (unilateral) Patient Instructions Patient Instructions For the COPD flare, continue levofloxacin 750 mg once daily for the next 2 days. Continue a 1 week steroid taper by taking prednisone 20 mg once daily for 7 days. We held albuterol as it likely contributed to the high lactic acid level. Start using an Atrovent inhaler 2 puffs every 6 hours. If you have shortness of breath or wheezing even after using the Atrovent inhaler, then you should use your rescue albuterol inhaler 2 puffs every 4 to 6 hours as needed. For diarrhea, you can continue to take the probiotics (Florastor) twice per day or eat foods with probiotics like yogurt, sauerkraut, or pickled vegetables. Follow up with your primary care provider in 7-10 days. Follow-up Provider: Federica Gale Follow-up with PCP in: 1 week Ortiz Carolina MD 08/25/16 0740: Discharge Instructions Attending's Statement Patient seen and examined with house staff. Agree with all attached documentation. Reyna Boyd DO August 24, 2016 08:06 Ortiz Carolina MD August 25, 2016 07:40
--- NOTE | 2016-08-24 17:45 | PCM.DC.MED ---
Discharge Summary Date of Service August 24, 2016 Dates of Hospitalization Date of Hospital Admission August 20, 2016 at 23:59 Date of Discharge: August 24, 2016 Providers: Admitting Physician: Diogo Jimenez MD Primary Care Physician: Federica Gale Attending Physician: Diogo Jimenez MD Diagnosis at Time of Discharge Diagnosis at Time of Discharge Acute hypoxic respiratory failure secondary to COPD exacerbation secondary to viral URI, present on admission. Improving. Rhinovirus/enterovirus upper respiratory infection, present on admission. Resolved. Lactic acidosis (anion gap metabolic acidosis), Acute. Present on admission, resolved. Diarrhea, acute, present on admission.improving. Fatigue, chronic, present on admission. improving. Bipolar disorder, chronic. Stable. Insomnia, chronic. Stable. Anxiety, chronic. Stable. Procedures XRay, CTs & MRIs Chest Xray Interpretation: IMPRESSION: No acute process. Dictated by: Gely Cooper M.D. on 08/20/2016 at 19:31 View: Portable, 1 view Interpretation / Wet Read by: Interpret - Radiologist PROCEDURE: CT CHEST, ABDOMEN AND PELVIS WTIH CONTRAST IMPRESSION: 1. Lipomatosis versus a fatty mass (lipoma) in the ileocecal valve. 2. Left basilar atelectasis. 3. Small hiatal hernia and concentric thickening of the distal esophagus. If clinically indicated, further evaluation with upper GI series or upper endoscopy is suggested. 4. Hepatic steatosis. 3. Degenerative changes in lumbar spine with distal lumbar spine central canal stenosis. Approved by: Ashtyn Block M.D. on 08/22/2016 at 10:46 ECG 12 Lead Sinus tachycardia with a rate of 113. Intervals are within normal limits. Minimal LAD. Suggestion of Qw in anteroseptal leads indicative of possible past infarct. Otherwise, no ST-Tw changes suggestive of ischemia. Other Diagnostics DateTimeAnalyzed 03:39:00 -_ pH ____7.298 - 7.350 7.450 pCO2 ___34.6__ -mmHg 35.0 45.0 pO2 ___76.8__ -mmHg 69.0 116 HCO3- ___16.4 Brief History The following is taken from Dr. Burgos's H&P dated 08/20/2016: A 61 year old female with a medical history including COPD, chronic bronchitis, anxiety, and bipolar disorder presents to the ED with increasing shortness of breath over the past one week, worsening significantly last night. The patient also reports of productive cough. She denies fever or other symptoms. Patient was hospitalized from 08/02-08/05 diagnosed with mycoplasma pneumonia and COPD exacerbation, was discharged on antibiotics and a prednisone taper, which patient was compliant with. Patient states for a brief time thereafter, she was doing quite well, although never felt completely back to her baseline. Patient also endorses ongoing diarrhea since last admit. Patient states she has never had spirometry testing, and is scheduled for one next month. In the ED vitals T 36.7, P 103, R 20, BP 149/79, oxygen 92% on RA. Labs significant only for glucose of 150, otherwise unremarkable. Patient admitted for further treatment and management. Hospital Course Specific diagnostic and therapeutic interventions as noted below, but briefly: 61-year-old morbidly obese female with COPD and recent hospitalization for mycoplasma pneumonia who presented with increased shortness of breath and productive cough. Diagnostic workup revealed rhinovirus/enterovirus positive- likely inciting event reciprocating COPD exacerbation. Managed with IV antibiotics (patient will complete course of levofloxacin-total of 5 days antibiotics), and COPD exacerbation management with PO glucocorticoids and inhaled medications. In addition to that, the patient manifested significant lactic acidosis with a peak of about 9. Following thorough investigation into the matter, and given case reports confirming the same, eventual suspicion was lactic acidosis precipitated by significant administration of nebulized beta agonist medications. On the day of discharge, patient is oxygenating well off of supplementation, and lactic acid is normalized. Acute hypoxic respiratory failure secondary to COPD exacerbation secondary to viral URI, present on admission. Resolved. - Positive rhinovirus/enterovirus - Patient received 2 g of ceftriaxone in ED, but this was not continued - Patient afebrile, no leukocytosis, procalcitonin negative with an exacerbation most likely due to viral etiolog. - Originally, antibiotics were held. However, lactic acidosis continued to remain elevated and pt had leukocytosis, so antibiotics were initiated in the form of IV levofloxacin. On day of discharge, patient continued on daily levofloxacin 2 days (5 d. total). - Left basilar atelectasis on CT scan - Continue to provide supplemental oxygen as needed - Duonebs Q4-6 hours, these were discontinued on the day of discharge with a preference for Atrovent - Albuterol Q2 hours PRN initially (as noted above), but given the patient's persistent lactic acidosis, and the likelihood that this was exacerbated by albuterol administration, this was discontinued. - Solu-Medrol 125mg IV given in ED decreased to 40mg IV twice daily and transitioned to PO prednisone 40 mg BID. On the day of discharge, patient was continued on daily prednisone 20 mg 7 days. - Incentive spirometer and acapella Lactic acidosis, acute. Present on admission, resolved. Due to tissue hypoxia with strong suspicion for contribution from Albuterol administration - CT scan did not show any ischemic or acute infectious process as the cause - See ABG above - IV normal saline fluids at 250 ml/hr for much of her hospitalization, but this was discontinued as the lactic acid normalized. - Strong consideration for not restarting beta agonist medications in the future given her suspected reaction to the same this hospitalization, but defer to primary provider for further determinations in this matter Diarrhea, acute, present on admission.improving. - Patient has been on multiple courses of antibiotics, and suspects likely secondary to the same (adverse reaction) - CT as above - C. difficile PCR negative - Stool PCR negative - IV fluids as above - Started Florastor twice per day, and this was continued on day of discharge Fatigue, acute, present on admission. Improving. - Patient had total thyroidectomy many years ago and was on replacement therapy for some time thereafter, patient has not been taking any thyroid medications now for within 10 years after moving to an area - TSH within normal Chronic conditions: COPD/bronchitis - nebs as above - Supplemental oxygen provided as needed, but patient did not require supplemental oxygen on the day of discharge. - Patient is scheduled for outpatient spirometry in 1 month Bipolar disorder - continue home medication lamotrigine Insomnia - Continue home medication trazodone Anxiety - Home medication clonazepam held, patient states has not been taking Viral URI likely resulting in COPD exacerbation requiring systemic glucocorticoids and oxygen supplementation. With the therapies designated above patient's course has progressed to being appropriate for discharge. We will continue specific therapies as noted above, and patient will follow-up with primary care providers. At time of discharge, patient was eating and drinking without complication, voiding and stooling without difficulty, ambulating without assistance. Pain free. I called the patient's PCP office and communicated via message with the call center that the patient had been discharged today. I also related some of the considerations delineated above regarding follow-up and medication continuation. A copy of this discharge summary will be forwarded to the PCP office. Exam Vital Signs (Last) Date Time Temp Pulse Resp B/P Pulse Ox O2 Delivery O2 Flow Rate FiO2 08/24/16 12:00 37.0 91 18 155/66 94 Room Air 08/23/16 04:53 5.00 Exam Physical exam on day of discharge: General: Alert, Oriented X3, Cooperative, No acute distress. Minimal cough, nonproductive. Eyes: PERRLA, EOMI, No scleral icterus, Conjunctiva normal Mouth: Mucous Membrane Moist/[place] Neck: Supple Chest & Lungs: Clear to auscultation bilaterally with prolonged expiratory phase. No acute respiratory distress. Normal respiratory effort with no accessory muscles Cardiovascular: Regular Rate/Rhythm, I/ systolic murmur, no gallops or rubs Abdomen: Non-tender, Non-distended, Obese Extremities: No cyanosis/clubbing bilat, trace pitting pedal edema bilaterally Skin: Warm, Dry, No cyanosis Neurological: no focal deficits Psychiatric: Mood/affect normal, Behavior normal, Normal thought content Test 08/20/16 19:25 08/20/16 20:23 08/20/16 23:20 08/21/16 23:20 Troponin T < 0.010ug/L (0.0-0.011) Pro-B-Type Natriuretic Peptide 104.3pg/mL (0-287) Procalcitonin 0.04ng/mL (0.00-0.08) Urine Color Yellow (YELLOW) Urine Appearance Hazy (CLEAR,HAZY) Urine pH 5.0 (5.0-8.0) Urine Specific Inlet 1.032 (1.003-1.035) Urine Protein Negativemg/dL (NEG,TRACE) Urine Glucose (UA) Negativemg/dL (NEGATIVE) Urine Ketones Negativemg/dL (NEGATIVE) Urine Occult Blood Negative (NEGATIVE) Urine Nitrite Negative (NEGATIVE) Urine Bilirubin Negative (NEGATIVE) Urine Urobilinogen Normalmg/dL (NORMAL) Urine Leukocyte Esterase Negative (NEGATIVE) Urine RBC 0-2/hpf (0-2) Urine WBC 0-5/hpf (0-5) Urine Epithelial Cells Few/hpf (NONE-MOD) Urine Crystals Oxalic acid crystals (NONE Urine Bacteria None/hpf (NONE-FEW) Urine Hyaline Casts None/lpf (NONE) Urine Granular Casts None seen (NONE SEEN) Urine Waxy Casts None seen (NONE SEEN) Urine Red Blood Cell Casts None seen (NONE SEEN) Urine White Blood Cell Casts None seen (NONE SEEN) Urine Mucus None seen (None Seen) Urine Trichomonas None seen (NONE SEEN) Urine Yeast None (NONE SEEN) Urinalysis Comment None Urine Culture Reflexed Not indicated Urine Legionella pneumophilia Ag Negative (Negative) Thyroid Stimulating Hormone (TSH) 1.930uIU/mL (0.450-4.500) Free Thyroxine 0.86ng/dL (0.82-1.77) Uric Acid 5.6mg/dL (2.6-7.2) Test 08/24/16 04:10 White Blood Count 9.3th/mm3 (3.8-10.1) Red Blood Count 3.76mil/mm3 (3.90-5.20) Hemoglobin 10.8g/dL (12.0-15.6) Hematocrit 32.6% (35.0-46.0) Mean Corpuscular Volume 86.7fL (81-100) Mean Corpuscular Hemoglobin 28.7pg (27.0-35.0) Mean Corpuscular Hemoglobin Concent 33.1% (32.0-37.0) Red Cell Distribution Width 14.6% (12.3-15.4) Platelet Count 214bil/L (150-400) Neutrophils (%) (Auto) 63.7% (40-74) Lymphocytes (%) (Auto) 28.8% (14-46) Monocytes (%) (Auto) 6.0% (4-12) Eosinophils (%) (Auto) 0.8% (0-5) Basophils (%) (Auto) 0.2% (0-3) Sodium Level 140mEq/L (134-144) Potassium Level 4.0mEq/L (3.5-5.2) Chloride Level 106mEq/L (97-108) Carbon Dioxide Level 21mmol/L (18-29) Blood Urea Nitrogen 13mg/dL (8-27) Creatinine 0.58mg/dL (0.57-1.00) Estimat Glomerular Filtration Rate 151mL/min (>59) Glucose Level 103mg/dL (60-99) Lactic Acid Level 1.4mmol/L (0.4-2.0) Calcium Level 7.9mg/dL (8.5-10.1) Total Bilirubin 0.2mg/dL (0.0-1.2) Aspartate Amino Transf (AST/SGOT) 40U/L (0-50) Alanine Aminotransferase (ALT/SGPT) 53U/L (0-32) Alkaline Phosphatase 55U/L (25-165) Total Protein 5.5g/dL (6.4-8.4) Albumin 3.2g/dL (3.4-5.0) Microbiology Results Microbiology ADENOVIRUS RESPIRATORY PCR Final 08/22/16-1322 Not Detected CORONOVIRUS 229E Final 08/22/16 Not Detected CORONOVIRUS HKU1 Final 08/22/16 Not Detected CORONOVIRUS NL63 Final 08/22/16 Not Detected CORONOVIRUS OC43 Final 08/22/16-1322 Not Detected INFLUENZA A PCR Final 08/22/16 Not Detected INFLUENZA B PCR Final 08/22/16 Not Detected METAPNEUMOVIRUS PCR Final 08/22/16 Not Detected RHINOVIRUS OR ENTEROVIRUS PCR Final 08/22/16 Organism 1 RHINOVIRUS/ENTEROVIRUS RHINOVIRUS OR ENTEROVIRUS DETECTED TIME CALLED: 1321 DATE CALLED: 08/22/16 FLOOR/DOCTOR: KENDAL/MELLISSA Marin CALLED BY: VS PARAINFLUENZA 1 PCR Final 08/22/16-1322 Not Detected PARAINFLUENZA 2 PCR Final 08/22/16-1322 Not Detected PARAINFLUENZA 3 PCR Final 08/22/16 Not Detected PARAINFLUENZA 4 PCR Final 08/22/16-1322 Not Detected RESP SYNCYTIAL VIRUS PCR Final 08/22/16-1322 Not Detected CHLAMDOPHILIA PNEUMONIAE PCR Final 08/22/16 Not Detected MYCOPLASMA PNEUMONIAE PCR Final 08/22/16 MYCO PNEUMONIAE PCR Not Detected Reference Interval Not Detected Discharge Medications Discharge Medications Ipratropium [place] (Atrovent HFA) 200 Puff/12.9 Gm Inhaler 2 PUFF INH QID Prescribed by: JEIMY IBARRA DO Lamotrigine (Lamotrigine) 200 Mg Tablet 200 MG PO HS (Reported) Levofloxacin (Levaquin) 750 Mg Tablet 750 MG PO DAILYAC Prescribed by: JEIMY IBARRA DO Multivitamin (Once Daily) 1 Each Tablet 1 EACH PO DAILY (Reported) Prednisone (PredniSONE) 50 Mg Tablet 20 MG PO DAILY Take 3 tabs (60mg) daily X2 days,then take 2 tabs (40mg) daily X4 days, then 1 tab (20mg) daily X4 days,then discontinue Prescribed by: JESS GLOVER DO Prednisone (Deltasone) 20 Mg Tablet 20 MG PO DAILY Prescribed by: JEIMY IBARRA DO Saccharomyces Boulardii (Florastor) 250 Mg Capsule 250 MG PO BID Prescribed by: JEIMY IBARRA DO Trazodone (Trazodone) 50 Mg Tablet 100 MG PO HS (Reported) As needed Albuterol HFA (Proair HFA) 8.5 Gm Hfa.aer.ad 1-2 PUFFS INH Q4H PRN PRN For Shortness of Breath If you have shortness of breath or wheezing that does not get better after using your Atrovent inhaler. Prescribed by: JEIMY IBARRA DO Clonazepam (Clonazepam) 1 Mg Tablet 1 MG PO TID PRN PRN For Anxiety (Reported) Followup Plan Disposition: Home Discharge Diet: No restrictions Discharge Activity: Limited until seen by PCP Patient Instructions For the COPD flare, continue levofloxacin 750 mg once daily for the next 2 days. Continue a 1 week steroid taper by taking prednisone 20 mg once daily for 7 days. We held albuterol as it likely contributed to the high lactic acid level. Start using an Atrovent inhaler 2 puffs every 6 hours. If you have shortness of breath or wheezing even after using the Atrovent inhaler, then you should use your rescue albuterol inhaler 2 puffs every 4 to 6 hours as needed. For diarrhea, you can continue to take the probiotics (Florastor) twice per day or eat foods with probiotics like yogurt, sauerkraut, or pickled vegetables. Follow up with your primary care provider in 7-10 days. Follow-up Provider: Federica Gale Follow-up with PCP in: 1 week Time spent 45 min Attending Statement Patient seen and examined with house staff. Agree with all attached documentation. copies to: Federica Gale Collin T DO August 24, 2016 17:45 Ortiz Carolina MD August 25, 2016 07:48
== END 2016-08-24 13:30 | disposition home or self-care (01) | DRG 189 ==
LOC: SED 18:30 → PCC 23:59
PROVIDERS: ADMIT Hospitalist; ATTEND Hospitalist
PROC: 4A033R1 Measurement of Arterial Saturation, Peripheral, Percutaneous Approach (ICD-10-PCS; principal; 2016-08-21)
DX: J96.01 Acute respiratory failure with hypoxia (principal); Z68.41 Body mass index [BMI] 40.0-44.9, adult; E87.2 Acidosis; J44.1 Chronic obstructive pulmonary disease with (acute) exacerbation; J98.11 Atelectasis; K52.1 Toxic gastroenteritis and colitis; E66.9 Obesity, unspecified; J06.9 Acute upper respiratory infection, unspecified; B97.89 Other viral agents as the cause of diseases classified elsewhere; F31.9 Bipolar disorder, unspecified; F41.9 Anxiety disorder, unspecified; G47.00 Insomnia, unspecified; T36.95XA Adverse effect of unspecified systemic antibiotic, initial encounter; Z87.891 Personal history of nicotine dependence